=== PATIENT | female | born 1960 | race Caucasian/White ===

== ENCOUNTER 2024-01-15 09:38 | Inpatient (IN) | payer OTHER ==
[~2024-01-15] VITALS: Ht 160 cm; Wt 126.0 kg
[2024-01-15] VITALS (28 sets, daily range): BP systolic 108–139; BP diastolic 54–95
[2024-01-15 10:47] LABS: Hemoglobin 13.5 g/dL (11.5-16.0); Mean Corpuscular HGB 27.5 pg (26.0-34.0); Mean Corpuscular HGB Conc 33.8 g/dL (31.5-36.5); Mean Corpuscular Volume 82 fL (80-100); Mean Platelet Volume 11.6 fL (9.1-12.4); NRBC ABSOLUTE 0.02 K/mm3 (0.00-0.02); NRBC Auto 0.1 /100 WBC (0.0-0.2); Red Blood Cell Count 4.91 M/mm3 (3.80-5.20); White Blood Cell Count 18.34 K/mm3 (4.00-11.30)
[2024-01-15 11:06] LABS: Source, Urine Clean Catch
[2024-01-15 11:09] LABS: Albumin, Blood 1.5 g/dL (3.4-5.0); Albumin/Globulin Ratio 0.3 (0.8-1.8); Bilirubin, Total 1.6 mg/dL (0.1-1.0); Bun/Creatinine Ratio 15.4 (12.0-20.0); Calcium, Blood 8.8 mg/dL (8.5-10.1); Creatinine, Blood 2.79 mg/dL (0.40-1.00); Globulin, Blood 4.8 g/dL (2.2-4.0); Potassium, Blood 3.3 mmol/L (3.5-5.5); Total Protein, Blood 6.3 g/dL (6.4-8.2)
[2024-01-15 11:13] LABS: Platelet Count 50 K/mm3 (150-400)
[2024-01-15 11:22] LABS: BAND PERCENT MAN 3 % (0-8); BASOPHILS PERCENT MAN 0 % (0-2); EOSINOPHILS ABSOLUTE MAN 0.18 K/mm3 (0.00-0.68); EOSINOPHILS PERCENT MAN 1 % (0-6); LYMPHOCYTES ABSOLUTE MAN 0.55 K/mm3 (0.84-5.20); LYMPHOCYTES PERCENT MAN 3 % (21-46); MONOCYTES ABSOLUTE MAN 0.55 K/mm3 (0.16-1.47); MONOCYTES PERCENT MAN 3 % (4-13); NEUTROPHILS ABSOLUTE MAN 17.05 K/mm3 (1.96-9.15); SEG NEUTROPHILS PERCENT MAN 90 % (41-73); TOTAL CELLS COUNTED 100
[2024-01-15] MEDS ORDERED: Lactated Ringer's 1,000 ML IV ONE ×2 (11:25)
[2024-01-15] MEDS ORDERED: Ondansetron HCl 2 MG / ML 2ML Vial IV ONE (11:25)
[2024-01-15 11:26] LABS: Appearance, Urine Cloudy (Clear); Blood, Urine 5+ (Neg); Color, Urine Amber (P-Yellow); Glucose Qualitative, Urine 3+ (Neg); Ketones, Urine Neg (Neg); Leukocyte Esterase, Urine 3+ (Neg); Nitrite, Urine Neg (Neg); Protein, Urine 3+ (Neg); Urobilinogen, Urine 2+ (Normal)
[2024-01-15 11:35] LABS: Bilirubin, Urine 1+ (Neg)
[2024-01-15 11:37] LABS: Bacteria Many /hpf; Red Blood Cells, Urine TNTC /hpf (0-2); Squamous Epithelial Cells Mod /hpf (Few); White Blood Cells, Urine TNTC /hpf (0-5)
[2024-01-15 11:43] LABS: Beta-hydroxybutyrate 11.8 mg/dL (0.2-2.8); Magnesium, Blood 1.5 mg/dL (1.6-2.4)
[2024-01-15] MEDS ORDERED: CefTRIAXone Sodium 1,000 MG in NS 100 ML IV ONE (11:55)
[2024-01-15] MEDS ORDERED: Vancomycin HCL 2,000 MG in NS 520 ML IV ONE (12:40)
[2024-01-15] MEDS ORDERED: MetroNIDAZOLE 500MG/NS 100 ml 100 ML IV ONE (12:40)
[2024-01-15] MEDS ORDERED: Cefepime HCl 2,000 MG in NS 100 ML IV ONE (12:40)
[2024-01-15 13:02] LABS: Base Excess Venous -9.7 mmol/L; Bicarbonate Venous 17.6 mmol/L (24.0-30.0); PCO2 Venous 28.4 mmHg (38-42); pH Blood Venous 7.35 (7.34-7.37)
[2024-01-15] MEDS ORDERED: Lactated Ringer's 1,000 ML IV SCH ×2 (13:05→15:00)
[2024-01-15] MEDS ORDERED: Insulin Human Regular 100 UNIT in NS 100 ML IV SCH (13:20)
[2024-01-15] MEDS ORDERED: Meropenem 1,000 MG in NS 100 ML IV SCH (14:00)
--- NOTE | 2024-01-15 14:02 | NUR ---
1400 50MCG FENTANYL GIVEN BY ANESTHESIOLOGIST FOR CENTRAL LINE INCERTION 1407 CENTRAL LINE INRIGHT RADIAL WRIST. PT NIDIA WELL
[2024-01-15] MEDS ORDERED: D5W-NS 1,000 ML IV SCH ×2 (14:15→14:25)
--- NOTE | 2024-01-15 14:22 | NUR ---
1400 PT SATGS DROPPED AFTER FENTANYL TO MID 70'S O2 PLACED SATS RAISED QUICKLY
[2024-01-15] MEDS ORDERED: Bupivacaine 0.5% HCl 5 MG/ML 30MLVIAL ONE (15:00)
[2024-01-15] MEDS ORDERED: Ondansetron HCl 2 MG / ML 2ML Vial IV PRN (15:00)
[2024-01-15] MEDS ORDERED: FLU VACC TS2024-25(6MOS UP)/PF 45 MCG/0.5 ML SYRINGE IM ONE (15:00)
[2024-01-15] MEDS ORDERED: Ondansetron HCl 2 MG / ML 2ML Vial ONE (15:07)
[2024-01-15] MEDS ORDERED: Phenylephrine HCl 100 MCG/ML-NS 10MLSYR (1MG/10ML) ONE (15:07)
[2024-01-15] MEDS ORDERED: FentaNYL Citrate 50 MCG/ML 5 ML Injection ONE (15:07)
[2024-01-15] MEDS ORDERED: propofoL 20 ML IV ONE (15:07)
[2024-01-15] MEDS ORDERED: Rocuronium Bromide 10 MG/ML 5ML Injection IV ONE (15:07)
--- NOTE | 2024-01-15 15:14 | NUR ---
01/15/24 1514 Cary Fong PRIOR TO ARRIVING IN OR, PLACD A RIGHT RADIAL ARTERIAL LINE IN DAY SURGERY. PRIOR TO ARRIVING IN THE OR, VANCO 2GM IV WAS STARTED. DR. THOMPSON PLACED A RIGHT IJ CENTRAL LINE IN THE OPERATING ROOM AT 1435.
[2024-01-15] MEDS ORDERED: Sugammadex Sodium 200 MG/2ML SDV (100 MG/ML) ONE (15:27)
[2024-01-15] MEDS ORDERED: Mag Sulfate 1 GM/D5% 100ML 100 ML IV STA (15:42)
[2024-01-15] MEDS ORDERED: Cefepime HCl 2,000 MG in NS 100 ML IV SCH (16:10)
[2024-01-15] MEDS ORDERED: Cefepime HCl 1,000 MG in NS 100 ML IV SCH (16:14)
[2024-01-15 16:36] LABS: Hematocrit 28.9 % (33.0-51.0); Hemoglobin 9.8 g/dL (11.5-16.0); Mean Corpuscular HGB 28.1 pg (26.0-34.0); Mean Corpuscular HGB Conc 33.9 g/dL (31.5-36.5); Mean Corpuscular Volume 83 fL (80-100); Mean Platelet Volume 11.4 fL (9.1-12.4); RDW Coefficient Variation 14.2 % (11.7-14.2); RDW Standard Deviation 42.4 fL (35.1-46.3); Red Blood Cell Count 3.49 M/mm3 (3.80-5.20); White Blood Cell Count 19.55 K/mm3 (4.00-11.30)
[2024-01-15 16:42] LABS: Bun/Creatinine Ratio 16.3 (12.0-20.0); Calcium, Blood 7.4 mg/dL (8.5-10.1); Creatinine, Blood 2.57 mg/dL (0.40-1.00); Potassium, Blood 2.9 mmol/L (3.5-5.5)
[2024-01-15 16:49] LABS: Platelet Count 41 K/mm3 (150-400)
[2024-01-15] MEDS ORDERED: Potassium Chl 20MEQ/Water100ML 100 ML IV STA (16:52)
[2024-01-15 17:18] LABS: BAND PERCENT MAN 15 % (0-8); BASOPHILS PERCENT MAN 0 % (0-2); EOSINOPHILS PERCENT MAN 0 % (0-6); LYMPHOCYTES ABSOLUTE MAN 0.58 K/mm3 (0.84-5.20); LYMPHOCYTES PERCENT MAN 3 % (21-46); MONOCYTES ABSOLUTE MAN 0.97 K/mm3 (0.16-1.47); MONOCYTES PERCENT MAN 5 % (4-13); NEUTROPHILS ABSOLUTE MAN 17.98 K/mm3 (1.96-9.15); SEG NEUTROPHILS PERCENT MAN 77 % (41-73); TOTAL CELLS COUNTED 100
--- NOTE | 2024-01-15 18:25 | NUR ---
SHIFT SUMMARY: PT ARRIVED TO UNIT AT 1600 FROM SURGERY, SLID TO ICU BED VIA SLIDER SHEET. PT A/Ox4 AND ABLE TO MAKE NEEDS KNOWN. SBP 120s, MAP>65. MONITOR SHOWS SINUS RYTHM-SINUS TACH RATE 90s-100s. SPO2>95% ON 2L NC. INSULIN GTT AT 10 UNITS/HR ON ARRIVAL, NOW AT 25 UNITS/HR. PT HAS SMALL SKIN TEAR/ SHEAR ABOVE HER ANUS. MAHARAJ PATENT AND DRAINING TO GRAVITY. CALL LIGHT IN REACH. WILL REPORT TO ONCOMING RN.
[2024-01-15] MEDS ORDERED: FentaNYL Citrate 50 MCG/ML 2 ML Injection IV PRN (18:40)
[2024-01-15] MEDS ORDERED: Potassium Phosphate Dibasic 30 MM in Dextrose 5% 500 ML IV SCH (19:00)
[2024-01-15 19:54] LABS: International Normalized Ratio 1.22; Prothrombin Time Results 12.9 Sec (9.7-11.5)
[2024-01-15 20:51] LABS: Bilirubin, Direct 0.9 mg/dL (0.0-0.3); Bilirubin, Indirect 0.2 mg/dL (0.1-0.7); Bilirubin, Total 1.1 mg/dL (0.1-1.0); Percent Saturation 12.9 % (15.0-50.0)
[2024-01-15] MEDS ORDERED: Lactobacil 2-S.Thermo-Bifido 1 1 Cap PO SCH (21:00)
[2024-01-15] MEDS ORDERED: OxyCODONE HCL 5 MG TAB PO PRN (21:20)
[2024-01-15] MEDS ORDERED: HYDROmorphone HCl/Pf 1MG SYR IV PRN (21:20)
[2024-01-15 21:54] LABS: Bun/Creatinine Ratio 18.1 (12.0-20.0); Calcium, Blood 7.5 mg/dL (8.5-10.1); Creatinine, Blood 2.49 mg/dL (0.40-1.00); Potassium, Blood 3.3 mmol/L (3.5-5.5)
[2024-01-15 22:38] LABS: Hematocrit 28.5 % (33.0-51.0); Hemoglobin 9.7 g/dL (11.5-16.0); Mean Corpuscular HGB 27.8 pg (26.0-34.0); Mean Corpuscular Volume 82 fL (80-100); Mean Platelet Volume 10.3 fL (9.1-12.4); RDW Coefficient Variation 13.9 % (11.7-14.2); RDW Standard Deviation 41.2 fL (35.1-46.3); Red Blood Cell Count 3.49 M/mm3 (3.80-5.20); White Blood Cell Count 16.56 K/mm3 (4.00-11.30)
[2024-01-15 22:41] LABS: Platelet Count 38 K/mm3 (150-400)
[2024-01-15 23:04] LABS: BAND PERCENT MAN 10 % (0-8); BASOPHILS PERCENT MAN 0 % (0-2); EOSINOPHILS PERCENT MAN 0 % (0-6); LYMPHOCYTES % ATYPICAL MANUAL 1 % (0-0); LYMPHOCYTES ABSOLUTE MAN 0.99 K/mm3 (0.84-5.20); LYMPHOCYTES PERCENT MAN 5 % (21-46); MONOCYTES ABSOLUTE MAN 0.16 K/mm3 (0.16-1.47); MONOCYTES PERCENT MAN 1 % (4-13); SEG NEUTROPHILS PERCENT MAN 83 % (41-73); TOTAL CELLS COUNTED 100
[2024-01-16] VITALS (41 sets, daily range): BP systolic 88–125; BP diastolic 48–74
[2024-01-16] MEDS ORDERED: Clindamycin 900mg in D5W 50ML 50 ML IV SCH
[2024-01-16] MEDS ORDERED: D5W-1/2NS 1,000 ML IV SCH (00:05)
[2024-01-16 00:28] LABS: Bun/Creatinine Ratio 19.4 (12.0-20.0); Calcium, Blood 7.6 mg/dL (8.5-10.1); Creatinine, Blood 2.47 mg/dL (0.40-1.00); Potassium, Blood 3.4 mmol/L (3.5-5.5)
[2024-01-16 03:20] LABS: Hematocrit 26.2 % (33.0-51.0); Mean Corpuscular HGB Conc 34.4 g/dL (31.5-36.5); Mean Corpuscular Volume 82 fL (80-100); Mean Platelet Volume 11.2 fL (9.1-12.4); Red Blood Cell Count 3.21 M/mm3 (3.80-5.20)
[2024-01-16 03:27] LABS: Platelet Count 33 K/mm3 (150-400)
[2024-01-16 03:37] LABS: Albumin/Globulin Ratio 0.3 (0.8-1.8); Bun/Creatinine Ratio 19.6 (12.0-20.0); Calcium, Blood 7.1 mg/dL (8.5-10.1); Creatinine, Blood 2.45 mg/dL (0.40-1.00); Globulin, Blood 3.6 g/dL (2.2-4.0); Magnesium, Blood 1.7 mg/dL (1.6-2.4); Phosphorus, Blood 3.1 mg/dL (2.5-4.9); Potassium, Blood 3.4 mmol/L (3.5-5.5); Total Protein, Blood 4.6 g/dL (6.4-8.2)
[2024-01-16 04:04] LABS: BAND PERCENT MAN 9 % (0-8); BASOPHILS PERCENT MAN 0 % (0-2); EOSINOPHILS PERCENT MAN 0 % (0-6); LYMPHOCYTES ABSOLUTE MAN 1.25 K/mm3 (0.84-5.20); LYMPHOCYTES PERCENT MAN 8 % (21-46); METAMYELOCYTE ABSOLUTE MAN 0.15 K/mm3 (0.00-0.00); METAMYELOCYTE PERCENT MAN 1 % (0-0); MONOCYTES ABSOLUTE MAN 0.15 K/mm3 (0.16-1.47); MONOCYTES PERCENT MAN 1 % (4-13); NEUTROPHILS ABSOLUTE MAN 14.13 K/mm3 (1.96-9.15); SEG NEUTROPHILS PERCENT MAN 81 % (41-73); TOTAL CELLS COUNTED 100
[2024-01-16] MEDS ORDERED: Potassium Chloride 60 MEQ IV ONE (04:35)
[2024-01-16] MEDS ORDERED: Potassium Chl 20MEQ/Water100ML 100 ML IV SCH (05:05)
--- NOTE | 2024-01-16 06:13 | NUR ---
SHIFT SUMMARY: NO ACUTE CHANGES OVERNIGHT, VSS THROUGHOUT THE SHIFT. PAIN WAS DIFFICULT TO MANAGE FOR THE FIRST PART OF THE SHIFT; DR THOMPSON CAME BY TO BEDSIDE TO ASSESS PT AND ORDERED NEW PAIN MED REGIMINE; PAIN WELL MANAGED WITH PRN DILAUDID AND OXYCODONE. BREAKTHROUGH PAIN REPORTED 5/10; LOWER ABD/PELVIC REGION. DRESSING TO PERINEUM REMAINS C/D/I. LOW URINE OUTPUT THIS SHIFT; DR THOMPSON AWARE. PT REMAINS ON INSULIN GTT @ 6.9, CBG 140-160'S, D5 1/2 NS @ 200 MLS/HR; PT RECIEVING KCL REPLACEMENT THIS MORNING. PT'S , GABBI, AT BEDSIDE THROUGHOUT THE NIGHT. BED LOWERED, CALL LIGHT IN REACH.
[2024-01-16] MEDS ORDERED: Albumin (Human) 25gm/100ml 100 ML IV ONE (07:50)
[2024-01-16] MEDS ORDERED: Lactated Ringer's 1,000 ML IV SCH ×2 (08:00→16:50)
[2024-01-16 08:04] LABS: Creatinine, Blood 2.38 mg/dL (0.40-1.00); Potassium, Blood 3.7 mmol/L (3.5-5.5)
[2024-01-16 08:45] LABS: D-Dimer, Quantitative 18.58 mg/L FEU (0.00-0.52)
[2024-01-16] MEDS ORDERED: Azithromycin 500 MG in NS 250 ML IV SCH (09:00)
[2024-01-16] MEDS ORDERED: Lactated Ringer's 1,000 ML IV ONE (09:20)
[2024-01-16] MEDS ORDERED: Pantoprazole Sodium 40 MG Injection IV ONE (09:20)
[2024-01-16 12:06] LABS: Bun/Creatinine Ratio 22.5 (12.0-20.0); Calcium, Blood 7.1 mg/dL (8.5-10.1); Creatinine, Blood 2.22 mg/dL (0.40-1.00); Potassium, Blood 3.9 mmol/L (3.5-5.5)
[2024-01-16] MEDS ORDERED: Insulin Glargine-Yfgn 100 Unit/mL 3 ML SYR SC SCH (13:00)
[2024-01-16] MEDS ORDERED: Cefepime HCl 2,000 MG in NS 100 ML IV SCH (16:00)
[2024-01-16] MEDS ORDERED: Insulin Human Lispro 100 Units/ML 3ML Syringe SC SCH (16:30)
[2024-01-16 17:25] LABS: Bun/Creatinine Ratio 23.4 (12.0-20.0); Calcium, Blood 7.4 mg/dL (8.5-10.1); Creatinine, Blood 2.22 mg/dL (0.40-1.00)
--- NOTE | 2024-01-16 17:54 | NUR ---
SHIFT SUMMARY: AT THE START OF SHIFT PT WAS VERY DROWSY AND SOMNOLENT. HER MENTATION AND WAKEFULNESS HAS IMPROVED THROUGHOUT THE DAY. SHE HAS BEEN ABLE TO EAT SMALL AMOUNTS WITHOUT NAUSEA AND IS OFF THE INSULIN GTT. PTS PAIN HAS BEEN MANAGABLE. HER INCISION IS CLEAN WITHOUT REDNESS OR BRUISING. DRESSING WAS CHANGED TODAY PER DR. THOMPSON. SHE HAS NO COMPLAINT OF DYSPNEA BUT IS TACHYPNEIC WITH EXERTION, HER SPO2 HAS BEEN >95% ON 2LPM NC. PT HAS BEEN IN A SINUS RHYTHM IN THE 90'S AND NORMOTENSIVE. MAHARAJ CATHETER IS PATENT AND DRAINING TO GRAVITY WITH MINIMAL URINE OUTPUT. DR GUZMAN AND KWABENA ARE AWARE AND WE ARE ATTEMPTING TO CORRECT WITH HYDRATION.
[2024-01-16 22:16] LABS: Bun/Creatinine Ratio 25.6 (12.0-20.0); Calcium, Blood 7.1 mg/dL (8.5-10.1); Creatinine, Blood 2.23 mg/dL (0.40-1.00); Potassium, Blood 4.3 mmol/L (3.5-5.5)
[2024-01-17] VITALS (16 sets, daily range): BP systolic 103–164; BP diastolic 52–109
[2024-01-17 05:30] LABS: Hemoglobin 8.2 g/dL (11.5-16.0); Mean Corpuscular HGB 27.8 pg (26.0-34.0); Mean Corpuscular HGB Conc 34.2 g/dL (31.5-36.5); Mean Corpuscular Volume 81 fL (80-100); Mean Platelet Volume 11.4 fL (9.1-12.4); RDW Coefficient Variation 14.4 % (11.7-14.2); RDW Standard Deviation 42.6 fL (35.1-46.3); Red Blood Cell Count 2.95 M/mm3 (3.80-5.20); White Blood Cell Count 10.46 K/mm3 (4.00-11.30)
[2024-01-17 05:46] LABS: Platelet Count 24 K/mm3 (150-400)
[2024-01-17 05:50] LABS: BAND PERCENT MAN 5 % (0-8); BASOPHILS PERCENT MAN 0 % (0-2); EOSINOPHILS PERCENT MAN 0 % (0-6); LYMPHOCYTES ABSOLUTE MAN 0.73 K/mm3 (0.84-5.20); LYMPHOCYTES PERCENT MAN 7 % (21-46); METAMYELOCYTE PERCENT MAN 1 % (0-0); MONOCYTES ABSOLUTE MAN 0.62 K/mm3 (0.16-1.47); MONOCYTES PERCENT MAN 6 % (4-13); NEUTROPHILS ABSOLUTE MAN 8.99 K/mm3 (1.96-9.15); SEG NEUTROPHILS PERCENT MAN 81 % (41-73); TOTAL CELLS COUNTED 100
[2024-01-17] MEDS ORDERED: Protein Supplement 30 ML UD PO SCH (08:30)
[2024-01-17 10:21] LABS: Bun/Creatinine Ratio 29.9 (12.0-20.0); Calcium, Blood 7.8 mg/dL (8.5-10.1); Creatinine, Blood 2.11 mg/dL (0.40-1.00); Potassium, Blood 4.2 mmol/L (3.5-5.5)
[2024-01-17] MEDS ORDERED: Thiamine HCl 300 MG in NS 100 ML IV ONE (13:40)
[2024-01-17] MEDS ORDERED: NS 1,000 ML IV SCH (14:00)
[2024-01-17] MEDS ORDERED: Folic Acid 1 MG TAB PO ONE (15:15)
[2024-01-17 17:13] LABS: Bun/Creatinine Ratio 30.7 (12.0-20.0); Calcium, Blood 7.9 mg/dL (8.5-10.1); Creatinine, Blood 2.05 mg/dL (0.40-1.00); Potassium, Blood 4.1 mmol/L (3.5-5.5)
[2024-01-17] MEDS ORDERED: Insulin Human Lispro 100 Units/ML 3ML Syringe SC SCH (17:30)
[2024-01-17] MEDS ORDERED: NS 500 ML IV SCH (18:00)
--- NOTE | 2024-01-17 18:26 | NUR ---
SHIFT SUMMARY: PT MENTATION CONTINUES TO IMPROVE TODAY. SHE IS MORE MOTIVATED TO EAT AND DO THINGS HERSELF. SHE IS STILL VERY FATIGUED BY MINOR ACTIVITY. PTS URINE OUTPUT AND QUALITY HAS IMPROVED. SHE IS DRINKING ENSURES THROUGHOUT THE DAY PER DIETARY. HER BLOOD SUGARS ARE UP AND ANION GAP HAS OPENED AGAIN. DR YUAN IS AWARE. PATIENT SAT IN THE RECLINER FOR A WHILE TODAY. HER CENTRAL LINE WAS REMOVED. MAHARAJ CATHETER IS STILL IN PLACE TODAY. HAS BEEN AT BEDSIDE THROUGHOUT THE DAY.
[2024-01-17 18:28] LABS: Uric Acid, Blood 8.8 mg/dL (2.6-6.0)
[2024-01-17 18:30] LABS: Thyroid Stimulating Hormone 0.287 uIU/mL (0.360-4.800)
[2024-01-17 20:45] LABS: Bun/Creatinine Ratio 31.6 (12.0-20.0); Calcium, Blood 7.8 mg/dL (8.5-10.1); Creatinine, Blood 2.06 mg/dL (0.40-1.00); Potassium, Blood 4.1 mmol/L (3.5-5.5)
[2024-01-17] MEDS ORDERED: Insulin Human Regular 100 UNIT in NS 100 ML IV SCH (21:05)
[2024-01-17] MEDS ORDERED: Lactated Ringer's 1,000 ML IV SCH ×2 (21:05→21:30)
[2024-01-17] MEDS ORDERED: NS 250 ML IV PRN (21:35)
[2024-01-17] MEDS ORDERED: NS 0 ML IV ONE (21:41)
--- NOTE | 2024-01-17 21:54 | NUR ---
THIS RN ASSUMED CARE OF PT AT 1900. PT IS ALERT AND ORIENTED BUT EXTREMELY TIRED, FOLLOWING COMMANDS. PT SOUNDS COURSE/DIMINSHED, ON 3L OF NC SATTING >90%, PT DENIES SHORTNESS OF BREATH. PT HEART RATE IS IN THE 80s, BLOOD PRESSURE STABLE AT 130/80s, PT DENIES CHEST PAIN. PT DOES HAVE AN INCISION IN THE CLAUDIA AREA, CLEAN, DRY AND INTACT WITH SUTURES. PT LAYING IN BED WATCHING TV WITH SIGNIFICANT OTHER. NO OTHER INTERVENTIONS AT THIST TIME. PLAN OF CARE CONTINUED.
--- NOTE | 2024-01-17 21:56 | NUR ---
THIS RN CALLED , PT SUGAR WAS 372 FINGERSTICK WITH SCHEDULED AT 2200, PT CLINCIALLY LOOKED NOT WELL, AND THIS RN DID NOT WANT TO DELAY CARE WITH THE ANION GAP 17 AND CO2 16. SAID TO GET 2200 LABS NOW AND CALL BACK.
--- NOTE | 2024-01-17 21:58 | NUR ---
PT CHEMISTRY CAME BACK WITH AN ANION GAP OF 15, CO2 17 AND BLOOD SUGAR 373, WAS CALLED AND SAID TO RESTART PT ON INSULIN DRIP, HAVE LR RUNNING AT 200ML/HR. PT BLOOD SUGARS WILL BE RECHECKED EVERY HOUR AFTER INSULIN DRIP HAS BEEN STARTED. NO FURTHER INTERVENTIONS AT THIS TIME. PLAN OF CARE CONTINUED.
[2024-01-18] VITALS (36 sets, daily range): BP systolic 100–168; BP diastolic 51–125
[2024-01-18] MEDS ORDERED: D5W-1/2NS 1,000 ML IV SCH (02:05)
[2024-01-18] MEDS ORDERED: HydrALAZINE HCl 20 MG / ML 1ML Vial IV PRN (02:10)
--- NOTE | 2024-01-18 02:25 | NUR ---
PT BLOOD SUGAR IS 234, INSULIN DRIP WAS TITRATED DOWN TO 3UNITS/HR, NOTIFIED, SAID TO START D51/2NS AT 125ML/HR 1 LITER, THEN ALSO ADDED HYDRALAZINE PRN FOR SBP >160.
[2024-01-18 03:26] LABS: Hematocrit 23.9 % (33.0-51.0); Hemoglobin 8.3 g/dL (11.5-16.0); Mean Corpuscular HGB 28.5 pg (26.0-34.0); Mean Corpuscular HGB Conc 34.7 g/dL (31.5-36.5); Mean Corpuscular Volume 82 fL (80-100); Mean Platelet Volume 12.1 fL (9.1-12.4); RDW Coefficient Variation 14.4 % (11.7-14.2); RDW Standard Deviation 42.8 fL (35.1-46.3); Red Blood Cell Count 2.91 M/mm3 (3.80-5.20); White Blood Cell Count 12.32 K/mm3 (4.00-11.30)
[2024-01-18 03:32] LABS: Platelet Count 28 K/mm3 (150-400)
[2024-01-18 03:44] LABS: Bun/Creatinine Ratio 36.6 (12.0-20.0); Creatinine, Blood 1.83 mg/dL (0.40-1.00); Magnesium, Blood 1.5 mg/dL (1.6-2.4); Phosphorus, Blood 4.6 mg/dL (2.5-4.9); Potassium, Blood 3.9 mmol/L (3.5-5.5)
[2024-01-18 03:47] LABS: BAND PERCENT MAN 3 % (0-8); BASOPHILS PERCENT MAN 0 % (0-2); EOSINOPHILS PERCENT MAN 0 % (0-6); LYMPHOCYTES ABSOLUTE MAN 1.23 K/mm3 (0.84-5.20); LYMPHOCYTES PERCENT MAN 10 % (21-46); MONOCYTES ABSOLUTE MAN 0.24 K/mm3 (0.16-1.47); MONOCYTES PERCENT MAN 2 % (4-13); NEUTROPHILS ABSOLUTE MAN 10.84 K/mm3 (1.96-9.15); SEG NEUTROPHILS PERCENT MAN 85 % (41-73); TOTAL CELLS COUNTED 100
--- NOTE | 2024-01-18 05:06 | NUR ---
PT SUMMARY PT IS LAYING IN BED WATCHING TV, STILL FOLLOWS COMMANDS APPROPRIATLEY. INSULIN DRIP IS STILL RUNNING AT 2UNITS/HR, LAST SUGAR WAS 194, CO2 17 THIS AM AND ANION GAP WAS LOWER AT 14 THIS AM. NO OTHER INTERVENTIONS AT THIS TIME. PLAN OF CARE CONTINUED.
[2024-01-18] MEDS ORDERED: Potassium Chl 20MEQ/Water100ML 100 ML IV SCH (06:30)
[2024-01-18] MEDS ORDERED: Mag Sulfate 1 GM/D5% 100ML 100 ML IV STA (06:34)
[2024-01-18 06:37] LABS: Free Thyroxine 1.08 ng/dL (0.70-1.60); Triiodothyronine, Free 0.77 pg/mL (2.18-3.98)
[2024-01-18] MEDS ORDERED: CefTRIAXone Sodium 2,000 MG in NS 100 ML IV SCH (06:39)
[2024-01-18] MEDS ORDERED: Vancomycin HCL 2,500 MG in NS 500 ML IV ONE (07:35)
[2024-01-18] MEDS ORDERED: Insulin Human Lispro 100 Units/ML 3ML Syringe SC SCH ×3 (08:30→17:30)
[2024-01-18] MEDS ORDERED: Acetaminophen 325 MG TABLET PO PRN (08:45)
[2024-01-18] MEDS ORDERED: Insulin Glargine-Yfgn 100 Unit/mL 3 ML SYR SC SCH ×2 (09:00→21:00)
[2024-01-18] MEDS ORDERED: Multivitamins-Minerals Liquid 15 ML Oral Syringe PO SCH (09:00)
[2024-01-18] MEDS ORDERED: Thiamine HCl 100 MG Tab PO SCH (09:00)
[2024-01-18 10:33] LABS: Creatinine, Blood 1.62 mg/dL (0.40-1.00); Potassium, Blood 4.2 mmol/L (3.5-5.5)
[2024-01-18] MEDS ORDERED: Furosemide 10 MG/ML 4ML Vial IV ONE ×2 (13:00→18:00)
[2024-01-18 15:47] LABS: Bun/Creatinine Ratio 44.4 (12.0-20.0); Calcium, Blood 8.2 mg/dL (8.5-10.1); Creatinine, Blood 1.51 mg/dL (0.40-1.00); Potassium, Blood 4.1 mmol/L (3.5-5.5)
--- NOTE | 2024-01-18 16:16 | NUR ---
AFTER WOUND CARE AND BED BATH THE PATIENT BECAME TREMULOUS AND WAS SHIVERING UNCONTROLLABLY. SHE WAS AFEBRILE. SHE BECAME TACHYCARDIC AND TACHYPNEIC WITH ST ELEVATION ALARMING ON THE MONITOR. SHE ALSO EXHIBITED EXPIRATORY WHEEZES. HER SPO2 DROPPED ON ROOM AIR. SHE WAS PLACED ON AN OXY MASK AT 8LPM AND AN ECG WAS DONE. DR GUAMAN, DR. YUAN AND DR GUZMAN TENDED TO THE PATIENT. THE EPISODE OF TACHYPNEA AND LABORIOUS BREATHING PERSISTED FOR ABOUT AN HOUR. PT REMAINED TACHYCARDIC AT 110 VS 134.
[2024-01-18] MEDS ORDERED: Dronabinol 2.5 MG Cap PO SCH (16:30)
--- NOTE | 2024-01-18 18:44 | NUR ---
SHIFT SUMMARY: PT HAS BEEN AWAKE, ALERT AND ORIENTED TODAY. SHE IS COOPERATIVE AND WILLING TO PARTICIPATE IN TREATMENT AND EATING HER NUTRITION HAS BEEN A MAIN CONCERN. SHE REMAINS VERY WEAK AND FATIGUED THOUGH. HER TWO INCISIONS FROM SURGERY ARE HEALING WELL, BUT LEAKING SOME SHE IS VERY EDAMATOUS. HER MAIN SOURCE OF PAIN IF HER LOWER ABDOMEN/PELVIS. PT WAS ON AN INSULIN GTT THROUGH MOST OF THE SHIFT AND IS NOW OFF AGAIN. SHE IS TACHYCARDIC, NORMOTENSIVE AND TACHYPNEIC ON 2 LPM NC HER SPO2 REMAINS >92%. SHE IS MORE WHEEZY THAN SHE HAS BEEN PREVIOUSLY.
--- NOTE | 2024-01-18 20:44 | NUR ---
THIS RN ASSUMED CARE OF PT AT 1900. PT IS ALERT AND ORIENTED X4, FOLLOWING COMMANDS AND WATCHING TELEVISION WITH SIGNIFICANT OTHER. PT SOUNDS A LITTLE WHEEZY/DIMINISHED, ON 2L NC SATTING >92%, PT DENIES SHORTNESS OF BREATH. PT HEART RATE IS NORMAL SINUS TO SINUS TACH, PT DENIES CHEST PAIN AND BLOOD PRESSURE 110/70s. PT DOES HAVE A MAHARAJ CATHETER IN PLACE DRAINING TO GRAVITY. PT ALSO HAS SUTURES AND SURGICAL WOUNDS IN CLAUDIA AREA THAT ARE CLEAN, DRY AND INTACT. NO OTHER INTERVENTIONS AT THIS TIME. PLAN OF CARE CONTINUED.
[2024-01-19] VITALS (19 sets, daily range): BP systolic 102–162; BP diastolic 57–118
[2024-01-19] MEDS ORDERED: Vancomycin HCL 1,000 MG in NS 250 ML IV SCH (01:00)
[2024-01-19 02:55] LABS: Hemoglobin 7.5 g/dL (11.5-16.0); Mean Corpuscular HGB Conc 34.1 g/dL (31.5-36.5); Mean Corpuscular Volume 82 fL (80-100); Mean Platelet Volume 11.6 fL (9.1-12.4); RDW Coefficient Variation 14.4 % (11.7-14.2); RDW Standard Deviation 42.8 fL (35.1-46.3); Red Blood Cell Count 2.68 M/mm3 (3.80-5.20); White Blood Cell Count 14.65 K/mm3 (4.00-11.30)
[2024-01-19 02:58] LABS: Platelet Count 40 K/mm3 (150-400)
[2024-01-19 03:10] LABS: Bun/Creatinine Ratio 52.2 (12.0-20.0); Calcium, Blood 8.2 mg/dL (8.5-10.1); Creatinine, Blood 1.34 mg/dL (0.40-1.00); Magnesium, Blood 1.7 mg/dL (1.6-2.4); Phosphorus, Blood 5.4 mg/dL (2.5-4.9); Potassium, Blood 3.8 mmol/L (3.5-5.5)
[2024-01-19 04:14] LABS: BAND PERCENT MAN 13 % (0-8); BASOPHILS PERCENT MAN 0 % (0-2); EOSINOPHILS PERCENT MAN 0 % (0-6); LYMPHOCYTES ABSOLUTE MAN 0.58 K/mm3 (0.84-5.20); LYMPHOCYTES PERCENT MAN 4 % (21-46); MONOCYTES ABSOLUTE MAN 0.58 K/mm3 (0.16-1.47); MONOCYTES PERCENT MAN 4 % (4-13); NEUTROPHILS ABSOLUTE MAN 13.47 K/mm3 (1.96-9.15); SEG NEUTROPHILS PERCENT MAN 79 % (41-73); TOTAL CELLS COUNTED 100
--- NOTE | 2024-01-19 06:01 | NUR ---
PT SUMMARY PT IS RESTING IN BED WATCHING TELEVISION. PT DID HAVE A BOWEL MOVEMENT OVERNIGHT, URINE OUTPUT IS STILL 100 ML/HR, NO OTHER NEW EVENTS TO REPORT OVERNIGHT. PLAN OF CARE CONTINUED.
[2024-01-19] MEDS ORDERED: Potassium Chloride 20 MEQ/15 ML UDC PO ONE (07:00)
[2024-01-19] MEDS ORDERED: Folic Acid 1 MG TAB PO SCH (09:00)
[2024-01-19] MEDS ORDERED: Furosemide 10 MG / ML 2ML Vial IV SCH (09:00)
--- NOTE | 2024-01-19 09:05 | NUR ---
Salix of care: Patient resting in bed with no complaints of pain. Alert & oriented & moves all extremities weakly. PT at the beside & so patient repositioned to the chair utilizing the lift. She is having large incontinent liquid stools so rectal tube placed in order to maintain integrity of surgical sites. Noland catheter draining clear, yellow urine. Pubis incision cleansed & new dressing placed. Labia incision with serosanguinous drainage. Vital signs are stable on 4L NC.
[2024-01-19] MEDS ORDERED: Insulin Human Lispro 100 Units/ML 3ML Syringe SC SCH (11:30)
[2024-01-19 13:43] LABS: Hematocrit 22.1 % (33.0-51.0); Hemoglobin 7.4 g/dL (11.5-16.0)
--- NOTE | 2024-01-19 18:12 | NUR ---
SHIFT SUMMARY PT REMAINS ALERT AND ORIENTED, THOUGH SLOW TO RESPOND. BP STABLE. HR REMAINS NSR. O2 SATS HAVE REMAINED ABOVE 90% 2L NC. MAHARAJ PATENT AND DRAINING CLEAR YELLOW URINE. RECTAL TUBE IN PLACE. PT TOLERATING PO INTAKE. PUBIS INCISION WITH DRESSING CLEAN, DRY, AND INTACT. LABIA INCISION CLEANED MULTIPLE TIMES THIS SHIFT DUE TO SEROSANGUINOUS DRAINAGE. PT COMPLAINED OF PAIN WITH CLEANSING OF WOUND, BUT REPORTS PAIN IS TOLERABLE. PT UP TO RECLINER WITH LIFT THIS SHIFT AND REPOSITIONED Q2H. WILL REPORT OFF TO ONOCMING RN
[2024-01-20] VITALS (7 sets, daily range): BP systolic 120–174; BP diastolic 55–86
[2024-01-20 05:24] LABS: BASOPHILS ABSOLUTE AUTO 0.06 K/mm3 (0.00-0.23); BASOPHILS PERCENT AUTO 0 % (0-2); Hematocrit 21.6 % (33.0-51.0); Hemoglobin 7.3 g/dL (11.5-16.0); LYMPHOCYTES ABSOLUTE AUTO 1.16 K/mm3 (0.84-5.20); LYMPHOCYTES PERCENT AUTO 7 % (21-46); MONOCYTES ABSOLUTE AUTO 0.74 K/mm3 (0.16-1.47); MONOCYTES PERCENT AUTO 5 % (4-13); Mean Corpuscular HGB 27.8 pg (26.0-34.0); Mean Corpuscular HGB Conc 33.8 g/dL (31.5-36.5); Mean Corpuscular Volume 82 fL (80-100); Mean Platelet Volume 11.7 fL (9.1-12.4); Platelet Count 93 K/mm3 (150-400); RDW Coefficient Variation 14.3 % (11.7-14.2); RDW Standard Deviation 42.5 fL (35.1-46.3); Red Blood Cell Count 2.63 M/mm3 (3.80-5.20)
[2024-01-20 05:59] LABS: Alanine Aminotransfer (ALT/SGP 12 U/L (12-78); Albumin, Blood 1.2 g/dL (3.4-5.0); Albumin/Globulin Ratio 0.3 (0.8-1.8); Alk Phos 245 U/L (50-136); Anion Gap 13 mmol/L (3-11); Aspartate Aminotrans (AST/SGOT 12 U/L (12-37); Bilirubin, Total 0.5 mg/dL (0.1-1.0); Blood Urea Nitrogen 69 mg/dL (8-24); Bun/Creatinine Ratio 92.1 (12.0-20.0); CO2, Blood 21 mmol/L (21-32); Calcium, Blood 8.6 mg/dL (8.5-10.1); Chloride, Blood 102 mmol/L (98-108); Cholesterol 120 mg/dL (50-200); Creatinine, Blood 0.75 mg/dL (0.40-1.00); Globulin, Blood 4.2 g/dL (2.2-4.0); Glomerular Filtration Rate 91 (60-); Glucose, Blood 248 mg/dL (70-99); HDL Cholesterol 4 mg/dL (>39); LDL/HDL RATIO 18.3; Low Density Lipoprotein Chol 73 mg/dL (0-110); Magnesium, Blood 1.6 mg/dL (1.6-2.4); Phosphorus, Blood 4.5 mg/dL (2.5-4.9); Potassium, Blood 3.8 mmol/L (3.5-5.5); Sodium, Blood 132 mmol/L (136-145); Total Protein, Blood 5.4 g/dL (6.4-8.2); Triglycerides 215 mg/dL (30-160); Very Low Density Lipoprot Chol 43 mg/dL (6-32)
[2024-01-20 06:02] LABS: EOSINOPHILS ABSOLUTE AUTO 0.12 K/mm3 (0.00-0.68); EOSINOPHILS PERCENT AUTO 1 % (0-6); IMMATURE GRAN ABSOLUTE AUTO 0.69 K/mm3 (0.00-0.10); IMMATURE GRAN PERCENT AUTO 4 % (0-1); NEUTROPHILS ABSOLUTE AUTO 13.33 K/mm3 (1.96-9.15); NEUTROPHILS PERCENT AUTO 83 % (41-73)
[2024-01-20 07:55] LABS: IMMATURE RETIC FRACTION 19.7 % (2.3-16.0); RETIC HGB EQUIVALENT 30.9 pg (28.20-36.60); RETICULOCYTE ABSOLUTE 0.0103 M/mm3 (0.0200-0.1100); RETICULOCYTE COUNT PERCENT 0.39 % (0.50-2.50)
[2024-01-20] MEDS ORDERED: Banana Flakes/Tos 1 EA Powder Pack PO SCH (10:00)
[2024-01-20 12:19] LABS: Hematocrit 22.1 % (33.0-51.0); Hemoglobin 7.5 g/dL (11.5-16.0)
[2024-01-20] MEDS ORDERED: Insulin Human Lispro 100 Units/ML 3ML Syringe SC SCH (12:30)
[2024-01-20] MEDS ORDERED: HydrALAZINE HCl 20 MG / ML 1ML Vial IV PRN (15:25)
[2024-01-20] MEDS ORDERED: Enoxaparin 40 MG/0.4 ML SYR SC SCH (16:00)
--- NOTE | 2024-01-20 16:00 | NUR ---
UPDATE WOUND TO PUBIS AREA CLEANED AND REDRESSED. WOUND TO LABIA WITH SEROSANGUINOUS DRAINAGE CLEANED AND LEFT OPEN TO AIR. PT PROVIDED BED BATH AND LINEN CHANGE. PT PAINFUL DURING BATH AND MEDICATED PER EMAR.
--- NOTE | 2024-01-20 19:20 | NUR ---
SHIFT SUMMARY PT REMAINS ALERT AND ORIENTED. BP STABLE. HR REMAINS NSR. O2 SATS HAVE REMAINED ON 2L NC. PT COMPLAINED OF PAIN WITH REPOSITIONING THIS SHIFT AND MEDICATED PER EMAR. MAHARAJ PATENT AND DRAINING CLEAR YELLOW URINE. RECTAL TUBE REMAINS IN PLACE, BUT PT STARTED ON BANANATROL PER EMAR. PT REPOSITIONED Q2H. REPORT GIVEN TO STAFFING COORDINATOR RN TO ASSUME CARE
[2024-01-20] MEDS ORDERED: Insulin Glargine-Yfgn 100 Unit/mL 3 ML SYR SC SCH (21:00)
[2024-01-21] VITALS (15 sets, daily range): BP systolic 121–182; BP diastolic 53–85
[2024-01-21 04:18] LABS: BASOPHILS ABSOLUTE AUTO 0.06 K/mm3 (0.00-0.23); BASOPHILS PERCENT AUTO 0 % (0-2); EOSINOPHILS PERCENT AUTO 1 % (0-6); Hematocrit 21.4 % (33.0-51.0); Hemoglobin 7.3 g/dL (11.5-16.0); IMMATURE GRAN ABSOLUTE AUTO 0.84 K/mm3 (0.00-0.10); IMMATURE GRAN PERCENT AUTO 5 % (0-1); LYMPHOCYTES ABSOLUTE AUTO 1.12 K/mm3 (0.84-5.20); LYMPHOCYTES PERCENT AUTO 7 % (21-46); MONOCYTES ABSOLUTE AUTO 0.68 K/mm3 (0.16-1.47); MONOCYTES PERCENT AUTO 4 % (4-13); Mean Corpuscular HGB Conc 34.1 g/dL (31.5-36.5); Mean Corpuscular Volume 82 fL (80-100); Mean Platelet Volume 11.9 fL (9.1-12.4); NEUTROPHILS ABSOLUTE AUTO 13.33 K/mm3 (1.96-9.15); NEUTROPHILS PERCENT AUTO 83 % (41-73); Platelet Count 174 K/mm3 (150-400); RDW Coefficient Variation 14.3 % (11.7-14.2); RDW Standard Deviation 42.2 fL (35.1-46.3); Red Blood Cell Count 2.61 M/mm3 (3.80-5.20); White Blood Cell Count 16.13 K/mm3 (4.00-11.30)
[2024-01-21 04:50] LABS: Bun/Creatinine Ratio 72.5 (12.0-20.0); Calcium, Blood 8.6 mg/dL (8.5-10.1); Creatinine, Blood 0.76 mg/dL (0.40-1.00); Potassium, Blood 3.6 mmol/L (3.5-5.5)
--- NOTE | 2024-01-21 05:22 | NUR ---
PT REMAINS A&OX4. VSS ON 2L NC >92%. PT REMAINS ON TELE NSR IN 80s. PTs MAHARAJ ALONG WITH RECTAL TUBE REMAIN IN PLACE FOR CLEANLINESS OF INCISIONS. PTS INCISION ON LABIA REMAINS INTACT AND HEALING WELL, REMAINS OPEN TO AIR. PTS WOUND TO LOWER ABDOMEN CLEANED AND REDRESSED. PT C/O PAIN WITH MOVEMENT. PRN MEDS GIVEN WITH GOOD EFFECT. PT GIVEN EGG CRATE FOAM TO PREVENT ANY PRESSURE INJURIES ALONG WITH Q2 TURNS. NO FURTHER QUESTIONS OR CONCERNS AT THIS TIME. CALL LR WITHIN REACH.
--- NOTE | 2024-01-21 17:22 | NUR ---
SHIFT SUMMARY; ASSUMED CARE AT 0700. A/A/OX3. Q2 TURNS DURING SHIFT, EGG CRATE ON BED. LIFT TO CHAIR TODAY, SAT IN CHAIR FOR A COUPLE HOURS. MOVES ARMS WELL BUT LEGS REMAIN TO WEAK TO LEFT INDEPENDANTLY. DIET ADVANCED TO REGULAR DIET TODAY BY ST, SWALLOWING PILL WHOLE WITH WATER WITHOUT DIFFICULTY. 1 UNIT PRBC COMPLETED TODAY, TOLERATED WELL. PAIN MANAGED TODAY TO ACCEPTABLE LEVEL WITH MEDS PER EMAR. BED BATH COMPLETED TODAY WITH LINEN CHANGE. ABD DRESSING C/D/I. INTERMITANT OOZE/BLEEDING FROM LABIA SITE, DRIED AND CLEANED PRN. MAHARAJ INPLACE DRAINING CLEAR YELLOW URINE. RECTAL TUBE IN PLACE DRAINING BROWN LIQUID STOOL. VSS, NO ACUTE MEDICAL CHANGES, WILL CONTINUE TO MONITOR AND TREAT UNTIL CHANGE OF SHIFT.
[2024-01-21 19:33] LABS: Hemoglobin 8.5 g/dL (11.5-16.0)
--- NOTE | 2024-01-22 02:05 | NUR ---
01/21/24 2159 PT ARRIVED FROM PCU TO ROOM IN STABLE CONDITION. AGREE WITH PREVIOUS NURSES ASSESSMENT EXCEPT, PT REPORTS PAIN IN ABD, HIPS, AND GROIN. GAVE PAIN MEDS, WILL EVAL FOR EFFECT. LAST BLOOD SUGAR WAS 200. TELE POTATO SPOTTER REPORTED THAT DURING TRANSPORT THE PATIENT HAD A [address] BUT IS NOW BACK TO SR AT 96. PT DENIED FEELING ANY SIGNS OF SYMPTOMS DURING TRANSPORT OR AT THIS TIME. PER TELE POTATO SPOTTER THIS IS A NEW EVENT. WILL LET THE DR KNOW SOON ABLE. MAHARAJ AND RECTAL TUBE ARE IN PLACE. CLEAR YELLOW URINE. STOOL IS MEDIUM TO DARK BROWN, SOFT, SMALL AMOUNT IN TUBE AND BAG. NO OTHER APPARENT SIGNS OF DISTRESS. IS IN ROOM. CALL LIGHT IS IN REACH.
--- NOTE | 2024-01-22 02:14 | NUR ---
0000 PT LYING IN BED, EYES CLOSED, APPEARS TO BE RESTING. BREATHING IS EVEN, UNLABORED. NO APPARENT SIGNS OF DISTRESS. CALL LIGHT IS IN REACH. IS IN ROOM.
[2024-01-22 03:29] VITALS: BP 159/58
--- NOTE | 2024-01-22 04:46 | NUR ---
PT REQUESTED AND RECEIVED PAIN MEDS, WILL EVAL FOR EFFECT. NO OTHER APPARENT SIGNS OF DISTRESS. CALL LIGHT IS IN REACH. IS IN ROOM.
--- NOTE | 2024-01-22 04:46 | NUR ---
PT IS AAO X 4, ON 2L AT 93%. REPORTS PAIN IN ABD, GROIN, AND HIPS. GOT DILAUDED AND XIN X 2. INCISION POST I&D ON PANNUS, REDNESS ON BOTTOM, WOUND TO LABIA. RECTAL TUBE W/MED TO DARK BROWN SOFT STOOL. MAHARAJ WITH CLEAR YELLOW URINE. BS WAS 200. TELE SR IN 80'S. 1 EPISODE OF 7 BEAT RUN OF SVT REPORTED BY TELE PROGRAM MANAGER ENVIRONMENTAL PLANNING DURING TRANSPORT FROM PCU TO MED FLOOR, ASYMPTOMATIC.
[2024-01-22 04:53] LABS: BASOPHILS ABSOLUTE AUTO 0.09 K/mm3 (0.00-0.23); BASOPHILS PERCENT AUTO 1 % (0-2); EOSINOPHILS PERCENT AUTO 1 % (0-6); Hematocrit 25.2 % (33.0-51.0); Hemoglobin 8.4 g/dL (11.5-16.0); IMMATURE GRAN ABSOLUTE AUTO 0.87 K/mm3 (0.00-0.10); IMMATURE GRAN PERCENT AUTO 6 % (0-1); LYMPHOCYTES ABSOLUTE AUTO 1.05 K/mm3 (0.84-5.20); LYMPHOCYTES PERCENT AUTO 7 % (21-46); MONOCYTES ABSOLUTE AUTO 0.73 K/mm3 (0.16-1.47); MONOCYTES PERCENT AUTO 5 % (4-13); Mean Corpuscular HGB 28.1 pg (26.0-34.0); Mean Corpuscular HGB Conc 33.3 g/dL (31.5-36.5); Mean Corpuscular Volume 84 fL (80-100); Mean Platelet Volume 10.6 fL (9.1-12.4); NEUTROPHILS ABSOLUTE AUTO 12.14 K/mm3 (1.96-9.15); NEUTROPHILS PERCENT AUTO 81 % (41-73); Platelet Count 236 K/mm3 (150-400); RDW Coefficient Variation 14.4 % (11.7-14.2); RDW Standard Deviation 43.6 fL (35.1-46.3); Red Blood Cell Count 2.99 M/mm3 (3.80-5.20); White Blood Cell Count 14.98 K/mm3 (4.00-11.30)
[2024-01-22 05:13] LABS: Bun/Creatinine Ratio 68.7 (12.0-20.0); Calcium, Blood 8.6 mg/dL (8.5-10.1); Creatinine, Blood 0.66 mg/dL (0.40-1.00); Potassium, Blood 3.7 mmol/L (3.5-5.5)
--- NOTE | 2024-01-22 06:30 | NUR ---
PT LYING IN BED, AWAKE, USING A HEATING PAD TO ASSIST WITH PAIN RELIEF. NO OTHER APPARENT SIGNS OF DISTRESS. CALL LIGHT IS IN REACH. IS IN ROOM. NO OTHER CHANGES THIS SHIFT.
[2024-01-22 07:19] VITALS: BP 147/66
[2024-01-22] MEDS ORDERED: Insulin Human Lispro 100 Units/ML 3ML Syringe SC SCH ×2 (07:30→12:30)
[2024-01-22 15:23] VITALS: BP 152/62
[2024-01-22 18:26] LABS: TRIIODOTHYRONINE, REVERSE TMS 72.1 ng/dL (9.0-27.0)
--- NOTE | 2024-01-22 18:31 | NUR ---
SHIFT SUMMARY PT A&OX4, VSS, ON 2L O2 NC, BEDRIDDEN AT THIS TIME, TOLERATING PO, VOIDING, AND PAIN MANAGED PER EMAR. RECTAL TUBE BECAME DISLODGED AND WAS REMOVED AT 1030. PT HAS PRESSURE ULCER ON MD BERNADETTE NOTIFIED, AND WOUND CARE/DRESSING ORDER RECEIVED. R INNER THIGH BLISTER NOW OPEN, COVERED W/ MEPILEX. NO OTHER ACUTE CHANGES. CALL LIGHT WITHIN REACH AND PT ABLE TO MAKE NEEDS KNOWN.
[2024-01-22 19:35] VITALS: BP 164/73
[2024-01-22] MEDS ORDERED: Insulin Glargine-Yfgn 100 Unit/mL 3 ML SYR SC SCH (21:00)
[2024-01-22] MEDS ORDERED: Miconazole Nitrate 2% 85 GM PWD TOP SCH (21:00)
[2024-01-23 02:58] VITALS: BP 178/68
--- NOTE | 2024-01-23 05:23 | NUR ---
SHIFT SUMMARY PT A&OX4. VERY PAINFUL WHEN TURNING. MEDICATED FOR PAIN PER EMAR. MAHARAJ CATH IN PLACE AND NEEDED TO BE FLUSHED ONCE DURING THE NIGHT. PT CONTINUES TO HAVE LIQUID STOOL. FOAM DRESSING ON COCCYX AND EXUDRY DRESSING ON ABD CHANGED ONCE. REMAINS ON 2L OF OXYGEN. NO EVENTS ON TELE. BP ELEVATED BUT DID NOT MEET CRITERIA FOR HYDALAZINE PRN. AT BEDSIDE. BED IN LOWEST POSITION AND CALL LIGHT IN REACH.
[2024-01-23 07:03] LABS: BASOPHILS ABSOLUTE AUTO 0.09 K/mm3 (0.00-0.23); BASOPHILS PERCENT AUTO 1 % (0-2); EOSINOPHILS ABSOLUTE AUTO 0.06 K/mm3 (0.00-0.68); EOSINOPHILS PERCENT AUTO 0 % (0-6); Hematocrit 25.2 % (33.0-51.0); Hemoglobin 8.2 g/dL (11.5-16.0); IMMATURE GRAN ABSOLUTE AUTO 0.37 K/mm3 (0.00-0.10); IMMATURE GRAN PERCENT AUTO 3 % (0-1); LYMPHOCYTES ABSOLUTE AUTO 1.04 K/mm3 (0.84-5.20); LYMPHOCYTES PERCENT AUTO 7 % (21-46); MONOCYTES ABSOLUTE AUTO 0.62 K/mm3 (0.16-1.47); MONOCYTES PERCENT AUTO 4 % (4-13); Mean Corpuscular HGB 28.1 pg (26.0-34.0); Mean Corpuscular HGB Conc 32.5 g/dL (31.5-36.5); Mean Corpuscular Volume 86 fL (80-100); Mean Platelet Volume 10.4 fL (9.1-12.4); NEUTROPHILS ABSOLUTE AUTO 11.92 K/mm3 (1.96-9.15); NEUTROPHILS PERCENT AUTO 85 % (41-73); Platelet Count 283 K/mm3 (150-400); RDW Coefficient Variation 14.7 % (11.7-14.2); RDW Standard Deviation 44.3 fL (35.1-46.3); Red Blood Cell Count 2.92 M/mm3 (3.80-5.20)
[2024-01-23 07:19] LABS: Albumin, Blood 1.4 g/dL (3.4-5.0); Albumin/Globulin Ratio 0.3 (0.8-1.8); Bilirubin, Total 0.3 mg/dL (0.1-1.0); Bun/Creatinine Ratio 79.5 (12.0-20.0); Calcium, Blood 9.3 mg/dL (8.5-10.1); Creatinine, Blood 0.52 mg/dL (0.40-1.00); Globulin, Blood 4.4 g/dL (2.2-4.0); Potassium, Blood 3.8 mmol/L (3.5-5.5); Total Protein, Blood 5.8 g/dL (6.4-8.2)
[2024-01-23 08:14] VITALS: BP 130/57
[2024-01-23] MEDS ORDERED: Furosemide 40 MG Tab PO SCH (09:00)
--- NOTE | 2024-01-23 10:56 | NUR ---
DR YUAN CONTACTED REGARDING BLOOD NOTED ON VAGINAL AREA. HOSPITALIST TO COME TO BEDSIDE TO SEE PATIENT.
[2024-01-23] MEDS ORDERED: Fluconazole 100 MG Tab PO ONE (16:00)
[2024-01-23 17:04] VITALS: BP 177/65
[2024-01-23] MEDS ORDERED: Insulin Human Lispro 100 Units/ML 3ML Syringe SC SCH (17:30)
--- NOTE | 2024-01-23 17:40 | NUR ---
PATIENT A/O X 4. PATIENT HAS BEEN PAINFUL IN BED AND WILL HELP WITH MOVING WHILE IN BED. PATIENT HAD NOTED VAISHALI BLOOD NOTED IN VAGINAL AREA, UPON INSPECTION IT WAS NOTED PATIENT THAT PATIENT HAD NOTED AREA OF CUT IN VAGINAL FOLD AND NOTED LESIONS ON VAGINAL AREA. PATIENT MAHARAJ WAS DISCONTINUED AND PROVIDER DR SWANSON AWARE AND STATED CURRENLY ON ANTIBIOTIC. VIRAL CULTURE WAS SENT TO LAB AND PENDING RESULTS. PATIENT NEW DIABETIC AND MET WITH NUTRITION. PATEINT ADVISED TO CONTACT NURSE FOR ANY ISSUES.
[2024-01-23] MEDS ORDERED: Ampicillin Sod/Sulbactam Sod 3 GM in NS 100 ML IV SCH (18:00)
[2024-01-23 19:45] VITALS: BP 140/69
[2024-01-23] MEDS ORDERED: Arginine/Glutamine/Calcium Hmb 1 Packet PO SCH (21:00)
[2024-01-24 04:57] VITALS: BP 138/51
[2024-01-24 05:18] LABS: BASOPHILS ABSOLUTE AUTO 0.11 K/mm3 (0.00-0.23); BASOPHILS PERCENT AUTO 1 % (0-2); EOSINOPHILS ABSOLUTE AUTO 0.17 K/mm3 (0.00-0.68); EOSINOPHILS PERCENT AUTO 1 % (0-6); Hematocrit 25.1 % (33.0-51.0); Hemoglobin 8.5 g/dL (11.5-16.0); IMMATURE GRAN ABSOLUTE AUTO 0.32 K/mm3 (0.00-0.10); IMMATURE GRAN PERCENT AUTO 2 % (0-1); LYMPHOCYTES ABSOLUTE AUTO 1.17 K/mm3 (0.84-5.20); LYMPHOCYTES PERCENT AUTO 8 % (21-46); MONOCYTES ABSOLUTE AUTO 0.64 K/mm3 (0.16-1.47); MONOCYTES PERCENT AUTO 4 % (4-13); Mean Corpuscular HGB 28.4 pg (26.0-34.0); Mean Corpuscular HGB Conc 33.9 g/dL (31.5-36.5); Mean Corpuscular Volume 84 fL (80-100); NEUTROPHILS ABSOLUTE AUTO 12.68 K/mm3 (1.96-9.15); NEUTROPHILS PERCENT AUTO 84 % (41-73); RDW Coefficient Variation 14.9 % (11.7-14.2); RDW Standard Deviation 44.1 fL (35.1-46.3); Red Blood Cell Count 2.99 M/mm3 (3.80-5.20); White Blood Cell Count 15.09 K/mm3 (4.00-11.30)
[2024-01-24 05:33] LABS: Mean Platelet Volume 10.5 fL (9.1-12.4); Platelet Count 274 K/mm3 (150-400)
[2024-01-24 05:38] LABS: Bun/Creatinine Ratio 69.9 (12.0-20.0); Calcium, Blood 9.2 mg/dL (8.5-10.1); Creatinine, Blood 0.56 mg/dL (0.40-1.00)
--- NOTE | 2024-01-24 06:14 | NUR ---
SHIFT SUMMARY A&0X4. PT ADMITTED DUE TO NECROTIZING FASCITIS. PT IN CONTACT ISO DUE TO ROLL OUT OF C-DIFF. WASN'T ABLE TO GET STOOL SAMPLE DUE TO PT NOT HAVING BM THIS SHIFT. PT REPORTS HIP/LOW ABD PAIN, PAIN MANAGED PER EMAR AND WITH KPAD. PT ON BEDREST, TURNED Q2 HRS. PT ON 1L OF O2 VIA N/C, SATS ARE 97%. NOTICED SCANT BLEEDING ON PERIPAD. WOUND DRESSINGS CHANGED DURING SHIFT. BARRIER CREAM APPLIED TO CLAUDIA AREA POST BEING CLEANED AND DRY, ANTIFUNGAL POWDER APPLIED UNDER PANNUS AND INNER THIGH. MEPILEX WAS REPLACED ON COCCYX. ON R THIGH, CLEANED SKIN TEAR WITH WOUND SPRAY AND 4X4 GAUZE, PAT AREA DRY . APPLIED XEROFORM AND MEPILEX DRESSING ON TOP. ON INCISION ON LOWER ABD, USED 4X4 GAUZE AND WOUND SPRAY TO CLEAN AREA, AND APPLIED EXUDRY AND TAPE TO SECURE DRESSING. BED AT LOWEST POSITION, PT CALLS APPROPRIATELY, CALL LIGHT IN REACH.
[2024-01-24 07:23] VITALS: BP 136/62
[2024-01-24 11:09] LABS: Adenovirus F 40/41 Not Detected (NOT DETECT); Astrovirus Not Detected (NOT DETECT); Campylobacter Sp Not Detected (NOT DETECT); Cryptosporidium Not Detected (NOT DETECT); Cyclospora Cayetanensis Not Detected (NOT DETECT); E. Coli O157 Not Detected (NOT DETECT); Entamoeba Histolytica Not Detected (NOT DETECT); Enteroaggregative E. coli-EAEC Not Detected (NOT DETECT); Enteropathogenic E. coli-EPEC Not Detected (NOT DETECT); Enterotoxigenic E. coli-ETEC Not Detected (NOT DETECT); Giardia Lamblia Not Detected (NOT DETECT); Plesiomonas Shigelloides Not Detected (NOT DETECT); Salmonella Sp Not Detected (NOT DETECT); Shiga Toxin-prod E. coli-STEC Not Detected (NOT DETECT); Shigella/Enteroin E. coli-EIEC Not Detected (NOT DETECT); Vibrio Cholerae Not Detected (NOT DETECT); Vibrio Sp Not Detected (NOT DETECT); Yersinia Enterocolitica Not Detected (NOT DETECT)
[2024-01-24 11:10] LABS: Norovirus GI/GII Not Detected (NOT DETECT); Rotavirus A Not Detected (NOT DETECT); Sapovirus Not Detected (NOT DETECT)
[2024-01-24 15:26] VITALS: BP 155/62
[2024-01-24] MEDS ORDERED: Insulin Human Lispro 100 Units/ML 3ML Syringe SC SCH (17:30)
--- NOTE | 2024-01-24 19:25 | NUR ---
ROZ IS AN ICU TRANSFER HERE FOR UTI/DKA/SEPSIS/TISSUE INFECTION. SHE IS A 2 PERSON TURN IN BED, BECOMES SOB AND ANXIOUS WITH BED MOBILITY DUE TO GENERALIZED PAIN. SHE IS VERY DECONDITIONED AFTER A 9 DAY HOSPITAL STAY. WORKED WITH PT/OT TODAY. CARE COORDINATION MET WITH FAMILY, OBI, AGREES TO TRANSFER TO [facility] FOR SKILLED REHAB. PT HAS AN INCISION ON HER LOWER ABD/PELVIS THAT IS COVERED WITH EXUDRY AND MEPILEX. CHANGED DAILY AND FOR PRN SOILING. INCONTINENT OF URINE AND STOOL, IN DEPENDS. PANEL TODAY SHOWED NEGATIVE FOR CDIFF. PT HAS SMALL AMOUNT OF VAGINAL BLEEDING FROM THE INCISION TO HER INNER RIGHT LABIA. PT'S PRIORITY TODAY WAS PAIN, PRNS GIVEN INCLUDED OXYCODONE EVERY 4 HOURS. PT ON TELE - DID HAVE A 6 SECOND RUN OF SVT - PT DENIED CHEST PAIN. BEDREST DUE TO DECONDITIONING. RN GAVE REPORT TO NIGHT NURSE. ROOM AIR. A&O X4.
--- NOTE | 2024-01-24 19:31 | NUR ---
TELE CALLED TO INFORM NURSE THAT PT HAD A 6 SECOND RUN OF SVT. RN ASSESSED PT WHO HAD NO ASSOCIATED SYMPTOMS, DENIED CHEST PAIN OR SHORTNESS OF BREATH. PT WAS LYING IN BED, WATCHING TV WITH HER .
[2024-01-24 19:33] VITALS: BP 161/66
--- NOTE | 2024-01-25 01:07 | NUR ---
NOTE AT 1915 GOT A CALL FROM TELE THAT PT HAD A 9 BEAT RUN OF SVT. PT REPORTED NO SYMPTOMS, REPORTED NO CHEST DISCOMFORT OR SOB. NOTIFIED KIM. NO NEW ORDERS AT 2014. AT 0100 TELE CALLED AND NOTIFIED PT HAVING A 18 BEAT RUN OF SVT. PT REPORTED NO SYMPTOMS, REPORTED NO CHEST DISCOMFORT OR SOB, AT BEDSIDE REPORTED "SHE WAS JUST SLEEPING SOUNDLY." PT CALL LIGHT IN REACH,
--- NOTE | 2024-01-25 02:54 | NUR ---
NOTE ON 01-24-24 AT 2330 WOUND DRESSINGS WERE CHANGED. NOTICED SCANT BLEEDING ON PERIPAD. PT WAS INC. OF URINE AND BM. DID A BED CHANGE AND PROVIDED CLAUDIA CARE. APPLIED ANTIFUNGAL POWDER UNDER PANNUS AND INNER THIGH, MEPILEX WAS REPLACED ON COCCYX. ON R THIGH CLEANED SKIN TEAR WITH WOUND SPRAY AND 4X4 GAUZE, PAT AREA DRY. APPLIED XEROFORM AND MEPILEX DRESSING ON TOP. ON INCISION ON LOWER ABD, USED 4X4 GAUZE AND WOUND SPRAY TO HOANG AREA, AND APPLIED EXUDRY AND TAPE TO SECURE DRESSING. BED IN LOWEST POSITION. APPLIED NEW GOWN, FLOATED PT TO R SIDE. CALL LIGHT IN REACH
[2024-01-25 04:04] VITALS: BP 125/57
[2024-01-25 04:57] LABS: BASOPHILS ABSOLUTE AUTO 0.11 K/mm3 (0.00-0.23); BASOPHILS PERCENT AUTO 1 % (0-2); EOSINOPHILS ABSOLUTE AUTO 0.18 K/mm3 (0.00-0.68); EOSINOPHILS PERCENT AUTO 1 % (0-6); Hematocrit 25.9 % (33.0-51.0); Hemoglobin 8.5 g/dL (11.5-16.0); IMMATURE GRAN ABSOLUTE AUTO 0.18 K/mm3 (0.00-0.10); IMMATURE GRAN PERCENT AUTO 1 % (0-1); LYMPHOCYTES PERCENT AUTO 10 % (21-46); MONOCYTES ABSOLUTE AUTO 0.48 K/mm3 (0.16-1.47); MONOCYTES PERCENT AUTO 4 % (4-13); Mean Corpuscular HGB 28.7 pg (26.0-34.0); Mean Corpuscular HGB Conc 32.8 g/dL (31.5-36.5); Mean Corpuscular Volume 88 fL (80-100); Mean Platelet Volume 9.5 fL (9.1-12.4); NEUTROPHILS ABSOLUTE AUTO 10.38 K/mm3 (1.96-9.15); NEUTROPHILS PERCENT AUTO 83 % (41-73); Platelet Count 416 K/mm3 (150-400); RDW Coefficient Variation 14.9 % (11.7-14.2); Red Blood Cell Count 2.96 M/mm3 (3.80-5.20); White Blood Cell Count 12.53 K/mm3 (4.00-11.30)
[2024-01-25 05:37] LABS: Bun/Creatinine Ratio 73.8 (12.0-20.0); Calcium, Blood 9.7 mg/dL (8.5-10.1); Creatinine, Blood 0.54 mg/dL (0.40-1.00); Potassium, Blood 3.9 mmol/L (3.5-5.5)
--- NOTE | 2024-01-25 06:20 | NUR ---
SHIFT SUMMARY PT A&OX4. ADMITTED DUE TO NECROTIZING FASCITIS. PT REPORTS HIP/LOW ABD PAIN, PAIN MANAGED PER EMAR WITH KPAD. PT ON BEDREST, TURNED Q2 HOURS. PT INC OF URINE AND BM, PT CHANGED PRN. PT CURRENTLY HAS BLE FLOATED ON PILLOWS. PT ON 1L O2 VIA N/C, SATS ARE 98%. WOUND DRESSING CHANGED PER SHIFT (LOOK AT PREVIOUS NOTE). PT ON TELE, TELE REPORTED RUNS OF SVT TWICE DURING SHIFT (SEE PREVIOUS NOTE). BED IN LOWEST POSIBLE POSITION, PT CALLS APPROPRIATELY, CALL LIGHT IN REACH. PLAN FOR PT TO BE DISCHARGED TO [facility] FOR REHAB. ANTIBIOTICS WERE STOPPED AT MIDNIGHT PER ORDER.
[2024-01-25 07:44] VITALS: BP 142/67
--- NOTE | 2024-01-25 15:47 | NUR ---
SHIFT SUMMARY PATIENT IN BED THIS SHIFT, USING BEDPAN. ATTEMPTED EDGE OF BED FOR MEALS, NOT ABLE TO CONTROL TRUNK AT THIS TIME, NOT ABLE TO MOVE LEGS OFF BED WITHOUT MAX ASSISTANCE. ENCOURAGED TO PERFORM PT EXERCISES. A/O X4. TELE DC THIS SHIFT. NEW WOUND CARE ORDERS, SURGEON PERFORMED FIRST DRESSING. RECEIVING OXY FOR PAIN RELIEF. REDNESS AND SWELLING CONTINUE TO LEFT ARM, TRAVELING TO SHOULDER AND CHEST. DOCS MADE AWARE AND ASSESSED. ABLE TO MAKE NEEDS KNOWN. CALL LIGHT IN REACH, CARES ONGOING.
[2024-01-25 16:14] VITALS: BP 167/67
[2024-01-25] MEDS ORDERED: Insulin Human Lispro 100 Units/ML 3ML Syringe SC SCH (17:30)
[2024-01-25 19:34] VITALS: BP 144/67
[2024-01-26 04:59] LABS: BASOPHILS ABSOLUTE AUTO 0.11 K/mm3 (0.00-0.23); BASOPHILS PERCENT AUTO 1 % (0-2); EOSINOPHILS ABSOLUTE AUTO 0.14 K/mm3 (0.00-0.68); EOSINOPHILS PERCENT AUTO 1 % (0-6); Hemoglobin 8.1 g/dL (11.5-16.0); IMMATURE GRAN ABSOLUTE AUTO 0.14 K/mm3 (0.00-0.10); IMMATURE GRAN PERCENT AUTO 1 % (0-1); LYMPHOCYTES ABSOLUTE AUTO 1.12 K/mm3 (0.84-5.20); LYMPHOCYTES PERCENT AUTO 9 % (21-46); MONOCYTES ABSOLUTE AUTO 0.54 K/mm3 (0.16-1.47); MONOCYTES PERCENT AUTO 5 % (4-13); Mean Corpuscular HGB 28.1 pg (26.0-34.0); Mean Corpuscular HGB Conc 32.4 g/dL (31.5-36.5); Mean Corpuscular Volume 87 fL (80-100); Mean Platelet Volume 9.4 fL (9.1-12.4); NEUTROPHILS ABSOLUTE AUTO 9.86 K/mm3 (1.96-9.15); NEUTROPHILS PERCENT AUTO 83 % (41-73); Platelet Count 449 K/mm3 (150-400); RDW Coefficient Variation 14.6 % (11.7-14.2); RDW Standard Deviation 45.8 fL (35.1-46.3); Red Blood Cell Count 2.88 M/mm3 (3.80-5.20); White Blood Cell Count 11.91 K/mm3 (4.00-11.30)
[2024-01-26 05:22] VITALS: BP 165/68
[2024-01-26 05:35] LABS: Albumin, Blood 1.5 g/dL (3.4-5.0); Albumin/Globulin Ratio 0.3 (0.8-1.8); Bilirubin, Total 0.3 mg/dL (0.1-1.0); Bun/Creatinine Ratio 83.5 (12.0-20.0); Calcium, Blood 9.9 mg/dL (8.5-10.1); Creatinine, Blood 0.5 mg/dL (0.40-1.00); Globulin, Blood 4.6 g/dL (2.2-4.0); Total Protein, Blood 6.1 g/dL (6.4-8.2)
--- NOTE | 2024-01-26 06:15 | NUR ---
PLANT NURSERY WORKER SUMMARY: PT A&O X4. PT ABLE TO MAKE NEEDS KNOWN. MEDICATED PER ORDERS IN EMAR FOR ABD / HIP PAIN X2 THIS SHIFT; EFFECTIVE. WOUND CARE PROVIDED ORDERED; TOLERATED WELL. PT INCONTINENT OF URINE. ENCOURAGED / EDUCATED PT TO ALERT STAFF OF TOILETING NEEDS. [facility] NO ACUTE CHANGES THIS SHIFT. CARES ONGOING.
[2024-01-26 07:29] VITALS: BP 144/51
[2024-01-26] MEDS ORDERED: Ketorolac Tromethamine 15mg Vial IV ONE (10:00)
[2024-01-26 15:21] VITALS: BP 149/68
[2024-01-26] MEDS ORDERED: Fluconazole 100 MG Tab PO ONE (16:00)
--- NOTE | 2024-01-26 17:30 | NUR ---
SHIFT SUMMARY PATIENT IN BED THIS SHIFT. EATING WELL. C/O HIP PAIN WITH MOVEMENT, DOC ORDERED ONE TIME TOREDOL WHICH PROVIDED MODERATE RELIEF. DR JOHNSON PERFORMED WOUND DRESSING CHANGE THIS AM. ACCEPTING OF REPOSITIONING FOR PRESSURE OFFLOADING. ABLE TO MAKE NEEDS KNOWN. CALL LIGHT IN REACH. CARES ONGOING.
[2024-01-26 19:29] VITALS: BP 152/65
[2024-01-26] MEDS ORDERED: Insulin Glargine-Yfgn 100 Unit/mL 3 ML SYR SC SCH (21:00)
--- NOTE | 2024-01-27 03:30 | NUR ---
INTERNAL CARVER SUMMARY: PT A&O X4. MAKES NEEDS KNOWN AND USES CALL LIGHT APPROPRIATELY. SUPRAPUBIC DRESSING CHANGED ORDERED X1 THIS SHIFT FOR SOILAGE. PT TOLERATED PROCEDURE WELL. PT HAS HAD DECREASED PAIN THIS SHIFT. MEDICATED X1 WITH PRN OXYCODONE PER EMAR ORDER; EFFECTIVE. PT HAS NOTED INCREASED INDEPENDENCE WITH TURING IN BED FOR CARE. PT HAD BEEN TOTAL 2 PERSON ASSIST WITH TURINGING HAD HAS BEEN EXTENSIVE 2 PERSON ASSIST T/O SHIFT. NOTED INCRESED TOLERANCE WITH LAYING ON HER SIDE FOR CLAUDIA CARE. PLAN IS FOR PT TO D/C TO SNF PENDING INSURANCE AUTH. NO ACUTE CHANGES THIS SHIFT. CARES ONGOING ORDERED. CALL LIGHT IN REACH.
[2024-01-27 04:29] VITALS: BP 157/55
[2024-01-27 06:07] LABS: Albumin, Blood 1.6 g/dL (3.4-5.0); Albumin/Globulin Ratio 0.3 (0.8-1.8); Bilirubin, Total 0.3 mg/dL (0.1-1.0); Bun/Creatinine Ratio 85.9 (12.0-20.0); Calcium, Blood 9.5 mg/dL (8.5-10.1); Creatinine, Blood 0.49 mg/dL (0.40-1.00); Globulin, Blood 4.8 g/dL (2.2-4.0); Potassium, Blood 4.2 mmol/L (3.5-5.5); Total Protein, Blood 6.4 g/dL (6.4-8.2)
[2024-01-27 07:11] VITALS: BP 171/70
[2024-01-27 07:21] LABS: Hematocrit 25.7 % (33.0-51.0); Hemoglobin 8.3 g/dL (11.5-16.0)
--- NOTE | 2024-01-27 10:15 | NUR ---
CONTACTED DR SWANSON TO DISCUSS PATIENT ABD WOUND WHICH IS NOTED TO BE RED AND DEEP. WOUND MEASURES 7CM IN LENGTH WITH OPEN AREA 4CM, DEPT 1.4CM WITH NOTED UNDERMINING AND TUNNELING. PER DR SWANSON REQUEST TO CALL DR MOLINA SURGERY TO DISCUSS WOUND. CALL PLACED TO DR MOLINA FOR CALL BACK
--- NOTE | 2024-01-27 11:13 | NUR ---
DR MOLINA RETURN THIS CALL AND REQUESTED THIS NURSE CONTACT DR JOHNSON, OFFICE CALLED FOR DR JOHNSON HOWEVER DR JOHNSON NOT WORKING. [facility]ODR[facility]GUEZ OFFICE RECALLED AND ADVISED THAT DR JOHNSON NOT AVIALABLE. REQUESTED CALL BACK FROM SURGEON DR MOLINA FOR WOUND CARE ORDERS.
[2024-01-27 15:13] VITALS: BP 165/67
--- NOTE | 2024-01-27 17:32 | NUR ---
PATIENT A/O X 4. PATIENT HAS BEEN ACCEPTED TO [facility] HOWEVER IS PENDING INSURANCE AUTH. PATIENT HAS A WOUND ON HER LOWER ABD MEASURING 7 CM IN LENGTH HOWEVER 5 CM NOTED TO BE OPEN WITH DEPT OF 1.5CM WITH NOTED TUNNELING AND UNDERMINDING. INCREASED SEROSANGIOUNS DRAINAGE NOTED THOUGHT THE DAY. DR MOLINA CONTACTED HOWEVER DID NOT COME TO BEDSIDE. PENDING SURGEON TO SEE PATINT AT BEDSIDE. PATIENT WOUND ON RIGHT UPPER THIGH NOTED 4 X 4 X 2 CM WITH NO DEPT. WOUND WAS CLEANSED AND XEROFORM APPLIED AND COVERED WITH MEPILEX. PATIENT ADVISED TO LET THIS NURSE KNOW IF THERE ARE ANY NEEDS. PATIENT VERBALIZED UNDERSTANDING
[2024-01-27 19:24] VITALS: BP 147/60
[2024-01-27 20:44] LABS: HSV 1 SUBTYPE BY PCR Not Detected; HSV 2 SUBTYPE BY PCR Not Detected; HSV SUBTYPE SOURCE Serum
[2024-01-28 01:30] VITALS: BP 149/63
[2024-01-28 05:04] LABS: Hematocrit 25.2 % (33.0-51.0)
[2024-01-28 05:37] LABS: Albumin, Blood 1.5 g/dL (3.4-5.0); Albumin/Globulin Ratio 0.3 (0.8-1.8); Bilirubin, Total 0.4 mg/dL (0.1-1.0); Bun/Creatinine Ratio 65.9 (12.0-20.0); Calcium, Blood 9.6 mg/dL (8.5-10.1); Creatinine, Blood 0.55 mg/dL (0.40-1.00); Globulin, Blood 4.8 g/dL (2.2-4.0); Potassium, Blood 4.1 mmol/L (3.5-5.5); Total Protein, Blood 6.3 g/dL (6.4-8.2)
--- NOTE | 2024-01-28 06:18 | NUR ---
SHIFT SUMMARY: Pt is admitted for septic shock and is a full code. Is alert and able to make needs known. ADLs have been a mix of 1-2 depending on activity and how she was feeling. Pain has been managed with positioning but has been offered PRN medications and declined. She has stated after being positioned that the pain goes down to a 2-3/10 and that is manageable. Dressing to lower ABD was changed early in the shift due to soiling and has been CDI the rest of the shift.
[2024-01-28 07:04] VITALS: BP 161/64
[2024-01-28 14:48] VITALS: BP 163/67
--- NOTE | 2024-01-28 18:36 | NUR ---
SHIFT SUMMARY PT A&0X4. PT ADMITTED TO NECROTIZING FASCITIS. PT REPORTED IN PT REPOSITIONED Q2 HOURS. PT REPORTS INCREASE IN PAIN AT R HIP. PT MEDICATED PER EMAR. DR. VELAZQUEZ NOTIFIED OF INCREASED PAIN. PT RECEIVED ULTRASOUND. OF R HIP DURING SHIFT. PT UP TO RECLINER FOR A FEW HOURS THIS SHIFT. PT BED IN LOWEST POSITION AND CALL LIGHT IN REACH. PT CALLS APPROPRIATELY. PT WOUND DRESSING CHANGED DURING SHIFT PRN. VSS. PT ON ROOM AIR.
[2024-01-28 19:21] VITALS: BP 163/63
[2024-01-29 04:04] VITALS: BP 147/61
[2024-01-29 07:15] VITALS: BP 149/67
[2024-01-29 12:12] LABS: CORONAVIRUS COVID-19 AG Negative (NEGATIVE)
[2024-01-29] MEDS ORDERED: Insulin Human Lispro 100 Units/ML 3ML Syringe SC SCH ×2 (12:30→16:30)
[2024-01-29] MEDS ORDERED: BANATROL PLUS1 EAC1 PO (12:43)
[2024-01-29] MEDS ORDERED: JUVEN PACKET1 EAC3 PO (12:43)
[2024-01-29] MEDS ORDERED: Acetaminophen650 M1 PO (12:43)
[2024-01-29] MEDS ORDERED: FOLI1 PO (12:46)
[2024-01-29] MEDS ORDERED: DRON2.5 PO (12:46)
[2024-01-29] MEDS ORDERED: FURO40 PO (12:48)
[2024-01-29] MEDS ORDERED: LANTUS SOL100 UNIT/1 SC (12:52)
[2024-01-29] MEDS ORDERED: HUMALOG KW100 UNIT/1 SC (12:53)
--- NOTE | 2024-01-29 12:54 | NUR ---
NOTE PT BLOOD SUGAR WAS 83. PT RECEIVES INSULIN SCHEDULED WITH MEALS. NOTIFIED DR. HIGGINS. ORDERED TO HOLD INSULIN AT LUNCH TIME.
[2024-01-29] MEDS ORDERED: INSULIN LI100 UNIT/6 SC (12:55)
[2024-01-29] MEDS ORDERED: MICONAZOLE 2% TOP (12:57)
[2024-01-29] MEDS ORDERED: OXAYDO5 M2 PO (12:59)
[2024-01-29] MEDS ORDERED: MULTIVITAM12 MG/15 M PO (12:59)
[2024-01-29] MEDS ORDERED: LIQUICAL PLUS480 ML PO (13:00)
[2024-01-29] MEDS ORDERED: B-1100 M2 PO (13:00)
--- NOTE | 2024-01-29 14:33 | NUR ---
REPORT GIVEN TO YOLETTE SALAZAR RN AT [facility]. PT BELONGINGS PACKED UP. PT TO GO TO [facility] VIA GURNEY TRANSPORT WHEN THEY ARRIVE. PAIN MEDICATION FOR R HIP PAIN GIVEN SO SHE CAN TOLERATE TRANSFER.
--- NOTE | 2024-01-29 16:14 | NUR ---
DISCHARGE NOTE PT A&OX4. PT ADMITTED DUE TO NECROTIZING FASCITIS. PT REPORTS R HIP PAIN, PAIN MANAGED PER EMAR. WOUND DRESSING CHANGED. PT WENT WITH WOUND SUPPLIES. PT REPOSITIONED Q2 HOURS. PT INC/CONT OF STOOL AND URINE, PT CHANGED NEEDED. PT EDUCATED ON DISCHARGE AND MEDS. PT GOT ESCORTED BY [facility] TO [facility]. ALETA RUSSO GAVE REPORT TO [facility].
== END 2024-01-29 16:01 | DRG 853 ==
LOC: ER 09:38 → MEDS 13:18 → ICUE 13:18 → PCU 01-19 12:52 → MEDS 01-21 21:26 → ENPENDDIS 01-29 11:36 → MEDS 01-29 16:01
PROVIDERS: Emergency Medicine; Family Medicine; Hospitalist; Physician Assistant; Student in an Organized Health Care Education/Training Program; Surgery; ADMIT Internal Medicine
PROC: 02HV33Z Insertion of Infusion Device into Superior Vena Cava, Percutaneous Approach (ICD-10-PCS; 2024-01-15)
PROC: 3E03329 Introduction of Other Anti-infective into Peripheral Vein, Percutaneous Approach (ICD-10-PCS; 2024-01-15)
PROC: 0WJN0ZZ Inspection of Female Perineum, Open Approach (ICD-10-PCS; principal; 2024-01-15 13:00)
PROC: 30233N1 Transfusion of Nonautologous Red Blood Cells into Peripheral Vein, Percutaneous Approach (ICD-10-PCS; 2024-01-21)
DX: A41.9 Sepsis, unspecified organism (principal); E11.10 Type 2 diabetes mellitus with ketoacidosis without coma; R65.21 Severe sepsis with septic shock; E43 Unspecified severe protein-calorie malnutrition; J96.01 Acute respiratory failure with hypoxia; G92.8 Other toxic encephalopathy; N39.0 Urinary tract infection, site not specified; E87.1 Hypo-osmolality and hyponatremia; N17.9 Acute kidney failure, unspecified; Z68.42 Body mass index [BMI] 45.0-49.9, adult; L89.152 Pressure ulcer of sacral region, stage 2; E88.09 Other disorders of plasma-protein metabolism, not elsewhere classified; K64.4 Residual hemorrhoidal skin tags; B96.20 Unspecified Escherichia coli [E. coli] as the cause of diseases classified elsewhere; R19.7 Diarrhea, unspecified; E87.6 Hypokalemia; E83.42 Hypomagnesemia; E83.39 Other disorders of phosphorus metabolism; R16.1 Splenomegaly, not elsewhere classified; E66.01 Morbid (severe) obesity due to excess calories; D69.6 Thrombocytopenia, unspecified; Z88.1 Allergy status to other antibiotic agents; N76.82 Fournier disease of vagina and vulva
CPT/HCPCS: 36415; 36430; 71045; 71260; 74176; 74177; 76705; 76857; 80048; 80053; 80061; 81001; 82010; 82247; 82248; 82533; 82607; 82728; 82746; 82803; 82947; 83036; 83540; 83550; 83605; 83615; 83690; 83735; 83880; 83930; 83935; 84100; 84134; 84145; 84300; 84439; 84443; 84481; 84482; 84484; 84550; 85014; 85018; 85025; 85045; 85060; 85379; 85384; 85610; 86850; 86900; 86901; 86923; 87040; 87077; 87086; 87186; 87426-QW; 87507; 87529; 92526; 92610; 93005; 93010; 93306; 94760; 94762; 96374-59; 97110; 97112; 97161; 97166; 97530; 99285-25; A9270; C1894; J0295; J0456; J0692; J0696; J1171; J1650; J1815; J1885; J1940; J2185; J2371; J2405; J2470; J2704; J3010; J3370; J3411; J3475; J3480; J7030; J7040; J7042; J7050; J7060; J7120; P9016; P9047; Q0167; Q9967

== ENCOUNTER → 2024-03-20 | Outpatient (CLI) | payer OTHER ==
[~2024-03-20] MED LIST: Acetaminophen650 M1 PO; B-1100 M2 PO; BANATROL PLUS1 EAC1 PO; DRON2.5 PO; FOLI1 PO; FURO40 PO; HUMALOG KW100 UNIT/1 SC; INSULIN LI100 UNIT/6 SC; JUVEN PACKET1 EAC3 PO; LANTUS SOL100 UNIT/1 SC; LIQUICAL PLUS480 ML PO; MICONAZOLE 2% TOP; MULTIVITAM12 MG/15 M PO; OXAYDO5 M2 PO
== END | disposition home or self-care (01) ==
LOC: LAB 13:07 → LAB SHORT 13:07
DX: L02.91 Cutaneous abscess, unspecified (principal)
CPT/HCPCS: 87070; 87075; 87077; 87186; 87205

== ENCOUNTER 2024-04-24 07:07 | Inpatient (IN) | payer OTHER ==
[~2024-04-24] VITALS: Ht 162.6 cm; Wt 96.8 kg
[2024-04-24] MEDS ORDERED: Ondansetron HCl 2 MG / ML 2ML Vial IV ONE ×2 (08:50→11:10)
[2024-04-24] MEDS ORDERED: IBUP200 PO (08:53)
[2024-04-24 09:11] LABS: BASOPHILS ABSOLUTE AUTO 0.04 K/mm3 (0.00-0.23); BASOPHILS PERCENT AUTO 0 % (0-2); EOSINOPHILS ABSOLUTE AUTO 0.08 K/mm3 (0.00-0.68); EOSINOPHILS PERCENT AUTO 1 % (0-6); Hematocrit 36.2 % (33.0-51.0); Hemoglobin 11.9 g/dL (11.5-16.0); IMMATURE GRAN ABSOLUTE AUTO 0.04 K/mm3 (0.00-0.10); IMMATURE GRAN PERCENT AUTO 0 % (0-1); LYMPHOCYTES ABSOLUTE AUTO 1.13 K/mm3 (0.84-5.20); LYMPHOCYTES PERCENT AUTO 13 % (21-46); MONOCYTES ABSOLUTE AUTO 0.29 K/mm3 (0.16-1.47); MONOCYTES PERCENT AUTO 3 % (4-13); Mean Corpuscular HGB 27.6 pg (26.0-34.0); Mean Corpuscular HGB Conc 32.9 g/dL (31.5-36.5); Mean Corpuscular Volume 84 fL (80-100); Mean Platelet Volume 8.6 fL (9.1-12.4); NEUTROPHILS ABSOLUTE AUTO 7.33 K/mm3 (1.96-9.15); NEUTROPHILS PERCENT AUTO 82 % (41-73); Platelet Count 310 K/mm3 (150-400); RDW Coefficient Variation 15.8 % (11.7-14.2); RDW Standard Deviation 48.2 fL (35.1-46.3); Red Blood Cell Count 4.31 M/mm3 (3.80-5.20); White Blood Cell Count 8.91 K/mm3 (4.00-11.30)
[2024-04-24 09:35] LABS: Albumin, Blood 3.6 g/dL (3.4-5.0); Albumin/Globulin Ratio 0.7 (0.8-1.8); Bilirubin, Total 0.4 mg/dL (0.1-1.0); Bun/Creatinine Ratio 16.9 (12.0-20.0); Calcium, Blood 10.1 mg/dL (8.5-10.1); Creatinine, Blood 0.47 mg/dL (0.40-1.00); Globulin, Blood 4.9 g/dL (2.2-4.0); Potassium, Blood 3.5 mmol/L (3.5-5.5); Total Protein, Blood 8.5 g/dL (6.4-8.2)
[2024-04-24] MEDS ORDERED: Labetalol HCL 5 MG/ML 4ML Injection (Single Dose) IV ONE ×2 (09:35→10:40)
[2024-04-24] MEDS ORDERED: FentaNYL Citrate 50 MCG/ML 2 ML Injection IV ONE (10:00)
[2024-04-24 10:19] LABS: Source, Urine Clean Catch
[2024-04-24] MEDS ORDERED: Clindamycin 900mg in D5W 50ML 50 ML IV ONE (11:20)
[2024-04-24] MEDS ORDERED: Piperacillin/Tazobactam Sod 3.375 GM in NS 100 ML IV ONE (11:20)
[2024-04-24] MEDS ORDERED: Vancomycin HCL 2,000 MG in NS 520 ML IV ONE (11:20)
[2024-04-24 11:33] LABS: Appearance, Urine Clear (Clear); Bilirubin, Urine Neg (Neg); Blood, Urine 1+ (Neg); Color, Urine Yellow (P-Yellow); Glucose Qualitative, Urine 3+ (Neg); Ketones, Urine 2+ (Neg); Leukocyte Esterase, Urine Neg (Neg); Nitrite, Urine Neg (Neg); Protein, Urine 3+ (Neg); Specific Gravity, Urine 1.015 (1.003-1.022); Urobilinogen, Urine NORM (Normal)
[2024-04-24] MEDS ORDERED: NS 1,000 ML IV SCH (11:50)
[2024-04-24] MEDS ORDERED: HydrALAZINE HCl 20 MG / ML 1ML Vial IV ONE (11:50)
[2024-04-24] MEDS ORDERED: HydrALAZINE HCl 20 MG / ML 1ML Vial IV PRN (12:20)
[2024-04-24 12:26] LABS: Hyaline Casts 0-2 /lpf (0-2)
[2024-04-24 12:27] LABS: Squamous Epithelial Cells Many /hpf (Few)
[2024-04-24 12:29] LABS: Amorphous Light (0-Heavy); Bacteria Mod /hpf
[2024-04-24 12:30] LABS: Transitional Epithelial Cells Rare /hpf (0-Rare); White Blood Cells, Urine 0-2 /hpf (0-5)
[2024-04-24] MEDS ORDERED: Cefepime HCl 1,000 MG in NS 100 ML IV SCH (12:30)
[2024-04-24] MEDS ORDERED: Metoclopramide HCl 5MG / ML 2ML Vial IV PRN (12:50)
[2024-04-24] MEDS ORDERED: Ondansetron HCl 2 MG / ML 2ML Vial IV PRN (13:15)
[2024-04-24] MEDS ORDERED: OxyCODONE HCL 5 MG TAB PO PRN (14:15)
[2024-04-24] MEDS ORDERED: Insulin Human Lispro 100 Units/ML 3ML Syringe SC SCH (16:30)
[2024-04-24 17:12] VITALS: BP 151/85
--- NOTE | 2024-04-24 17:59 | NUR ---
arrival to pcu/shift summary patient arrived to pcu from [facility] via [facility] and transfered to pcu bed with one person standby and used cane. patient vital signs stable. tele sinus tach 103. spo2 >95% on room air. patient is alert and oriented x4. neuro is intact. perrla. patient is able to make needs known and uses call light appropriately. patient denies pain, chest pain/pressure or shortness of breath. patient has a right wound on groin that has raised pink flush skin and has a pad in place and wound care done on arrival. there are photos in the chart of the wound. admit assessment complete, home meds complete and history complete. this rn spoke with md garcia and the patient needs to be cobra transfered out for a procedure on that right groin area. patient has been updated on this, and at bedside updated as well. charge weigher is making phone calls to find an accepting facility.
[2024-04-24] MEDS ORDERED: NS 250 ML IV PRN (19:45)
[2024-04-24] MEDS ORDERED: Clindamycin 900mg in D5W 50ML 50 ML IV SCH (20:00)
[2024-04-24 20:05] VITALS: BP 129/70
[2024-04-24] MEDS ORDERED: Lactobacil 2-S.Thermo-Bifido 1 1 Cap PO SCH (21:00)
[2024-04-24] MEDS ORDERED: Insulin Glargine-Yfgn 100 Unit/mL 3 ML SYR SC SCH (21:00)
[2024-04-24] MEDS ORDERED: Vancomycin HCL 1,000 MG in NS 250 ML IV SCH (22:00)
--- NOTE | 2024-04-24 22:28 | NUR ---
SHIFT SUMMARY PT HAS BEEN SLEEPING PEACEFULLY. WAKES EASILY FOR MEDICATION ADMINISTRATION AND INTERVENTIONS. PT HAS BEEN PLEASANT AND COOPERATIVE WITH CARE. PT LYING IN BED COMFORTABLY.
[2024-04-24 23:48] VITALS: BP 120/58
--- NOTE | 2024-04-25 00:02 | NUR ---
ASSUMPTION OF CARE NOTE. THIS RN TOOK OVER CARE FROM PREVIOUS RN @ APPROXIMATELY [id number]. PT RESTING COMFORTABLY AT TIME OF ASSESSMENT. VITALS STABLE. DENIES PAIN OR NEEDS OF ANY KIND. CEFEPIME HUNG. BED LOCKED IN LOWEST POSITION. CALL LIGHT LEFT WITHIN REACH. CONTINUING TO MONITOR.
--- NOTE | 2024-04-25 03:11 | NUR ---
TRANSFERRING CARE TO [employer]. PT HAS BEEN ABLE TO REST COMFORTABLY DURING TIME IN CARE OF THIS RN. DENIED PAIN. DENIED ANY ACUTE NEEDS. ABX ADMINISTERED ON TIME AND WITHOUT DIFFICULTY. CONTINUES TO RUN SINUS ON TELE. VITALS STABLE. CALLS APPROPRIATELY AND MAKES NEEDS KNOWN. BED LOCKED IN LOWEST POSITION. CALLLIGHT LEFT WITHIN REACH. CONTINUING TO MONITOR.
[2024-04-25 03:12] VITALS: BP 128/56
[2024-04-25 04:35] LABS: BASOPHILS ABSOLUTE AUTO 0.08 K/mm3 (0.00-0.23); BASOPHILS PERCENT AUTO 1 % (0-2); EOSINOPHILS ABSOLUTE AUTO 0.25 K/mm3 (0.00-0.68); EOSINOPHILS PERCENT AUTO 3 % (0-6); Hematocrit 30.3 % (33.0-51.0); Hemoglobin 9.8 g/dL (11.5-16.0); IMMATURE GRAN ABSOLUTE AUTO 0.03 K/mm3 (0.00-0.10); IMMATURE GRAN PERCENT AUTO 0 % (0-1); LYMPHOCYTES ABSOLUTE AUTO 1.49 K/mm3 (0.84-5.20); LYMPHOCYTES PERCENT AUTO 20 % (21-46); MONOCYTES ABSOLUTE AUTO 0.66 K/mm3 (0.16-1.47); MONOCYTES PERCENT AUTO 9 % (4-13); Mean Corpuscular HGB 27.9 pg (26.0-34.0); Mean Corpuscular HGB Conc 32.3 g/dL (31.5-36.5); Mean Corpuscular Volume 86 fL (80-100); Mean Platelet Volume 8.3 fL (9.1-12.4); NEUTROPHILS ABSOLUTE AUTO 4.89 K/mm3 (1.96-9.15); NEUTROPHILS PERCENT AUTO 66 % (41-73); Platelet Count 293 K/mm3 (150-400); RDW Coefficient Variation 16.6 % (11.7-14.2); RDW Standard Deviation 52.4 fL (35.1-46.3); Red Blood Cell Count 3.51 M/mm3 (3.80-5.20)
[2024-04-25 04:59] LABS: Albumin, Blood 2.9 g/dL (3.4-5.0); Albumin/Globulin Ratio 0.7 (0.8-1.8); Bilirubin, Total 0.3 mg/dL (0.1-1.0); Bun/Creatinine Ratio 16.5 (12.0-20.0); Calcium, Blood 9.1 mg/dL (8.5-10.1); Creatinine, Blood 0.85 mg/dL (0.40-1.00); Globulin, Blood 3.9 g/dL (2.2-4.0); Potassium, Blood 3.3 mmol/L (3.5-5.5); Total Protein, Blood 6.8 g/dL (6.4-8.2)
[2024-04-25] MEDS ORDERED: Potassium Chloride 20 MEQ TabCR PO ONE (09:40)
[2024-04-25 10:31] LABS: Bun/Creatinine Ratio 19.3 (12.0-20.0); Calcium, Blood 9.2 mg/dL (8.5-10.1); Creatinine, Blood 0.78 mg/dL (0.40-1.00); Potassium, Blood 3.4 mmol/L (3.5-5.5)
[2024-04-25 12:08] VITALS: BP 146/64
[2024-04-25 13:21] VITALS: BP 146/64
--- NOTE | 2024-04-25 14:16 | NUR ---
assumed care of pt a/o x4 ambulatory in pt calls appropriatly. ivs to left arm are both patent, pt has no c/o pain to right inguinal area no drainage noted, covered with mepilex. Dr Leija was consulted but confirmed higher level of care was needed. awaiting transfer to hospital with higher level of care. report called into [facility] in [place]. pt transferred via ambulance @[id number]
[2024-04-25 14:31] LABS: Vancomycin, Trough 30.5 ug/mL (5.0-10.0)
== END 2024-04-25 13:50 | disposition short-term general hospital (02) | DRG 872 ==
LOC: ER 07:07 → ERHOLD 11:54 → PCU 11:54 → ER 11:59 → PCU 17:05
PROVIDERS: Emergency Medicine; Student in an Organized Health Care Education/Training Program; ADMIT Family Medicine
DX: A41.9 Sepsis, unspecified organism (principal); E87.1 Hypo-osmolality and hyponatremia; M86.9 Osteomyelitis, unspecified; L02.214 Cutaneous abscess of groin; E11.69 Type 2 diabetes mellitus with other specified complication; I16.0 Hypertensive urgency; N76.82 Fournier disease of vagina and vulva; Z91.018 Allergy to other foods; Z88.5 Allergy status to narcotic agent; Z88.1 Allergy status to other antibiotic agents; Z91.030 Bee allergy status; Z79.4 Long term (current) use of insulin; Z79.1 Long term (current) use of non-steroidal anti-inflammatories (NSAID); Z79.85 Long-term (current) use of injectable non-insulin antidiabetic drugs; Z79.891 Long term (current) use of opiate analgesic; Z98.890 Other specified postprocedural states; S31.103D Unspecified open wound of abdominal wall, right lower quadrant without penetration into peritoneal cavity, subsequent encounter
CPT/HCPCS: 36415; 74177; 80048; 80053; 80202; 81001; 82947; 83036; 83605; 83690; 84484; 85025; 85651; 86140; 93005; 93010; A9270; J0360; J0692; J1815; J2405; J2543; J2765; J3010; J3370; J7030; J7040; J7050; Q9967

== ENCOUNTER → 2024-05-05 | Outpatient (CLI) | payer OTHER ==
[~2024-05-05] MED LIST changes: +IBUP200 PO
[2024-05-05 18:54] LABS: BASOPHILS ABSOLUTE AUTO 0.06 K/mm3 (0.00-0.23); BASOPHILS PERCENT AUTO 1 % (0-2); EOSINOPHILS ABSOLUTE AUTO 0.51 K/mm3 (0.00-0.68); EOSINOPHILS PERCENT AUTO 7 % (0-6); Hematocrit 26.9 % (33.0-51.0); Hemoglobin 8.8 g/dL (11.5-16.0); IMMATURE GRAN ABSOLUTE AUTO 0.04 K/mm3 (0.00-0.10); IMMATURE GRAN PERCENT AUTO 1 % (0-1); LYMPHOCYTES ABSOLUTE AUTO 1.57 K/mm3 (0.84-5.20); LYMPHOCYTES PERCENT AUTO 21 % (21-46); MONOCYTES ABSOLUTE AUTO 0.52 K/mm3 (0.16-1.47); MONOCYTES PERCENT AUTO 7 % (4-13); Mean Corpuscular HGB 27.8 pg (26.0-34.0); Mean Corpuscular HGB Conc 32.7 g/dL (31.5-36.5); Mean Corpuscular Volume 85 fL (80-100); Mean Platelet Volume 9.2 fL (9.1-12.4); NEUTROPHILS ABSOLUTE AUTO 4.73 K/mm3 (1.96-9.15); NEUTROPHILS PERCENT AUTO 64 % (41-73); Platelet Count 282 K/mm3 (150-400); RDW Standard Deviation 46.5 fL (35.1-46.3); Red Blood Cell Count 3.16 M/mm3 (3.80-5.20); White Blood Cell Count 7.43 K/mm3 (4.00-11.30)
[2024-05-05 20:11] LABS: Albumin, Blood 2.7 g/dL (3.4-5.0); Albumin/Globulin Ratio 0.8 (0.8-1.8); Bilirubin, Total 0.2 mg/dL (0.1-1.0); Bun/Creatinine Ratio 22.6 (12.0-20.0); Calcium, Blood 9.7 mg/dL (8.5-10.1); Creatinine, Blood 1.46 mg/dL (0.40-1.00); Globulin, Blood 3.6 g/dL (2.2-4.0); Potassium, Blood 3.7 mmol/L (3.5-5.5); Total Protein, Blood 6.3 g/dL (6.4-8.2)
== END ==
LOC: LAB 16:47 → LAB SHORT 16:47
PROVIDERS: Nurse Practitioner Family
DX: E11.69 Type 2 diabetes mellitus with other specified complication (principal); R53.1 Weakness; Z79.4 Long term (current) use of insulin; M86.9 Osteomyelitis, unspecified; L02.219 Cutaneous abscess of trunk, unspecified
CPT/HCPCS: 80053; 85025

== ENCOUNTER → 2024-05-12 | Outpatient (CLI) | payer OTHER ==
[2024-05-12 16:20] LABS: BASOPHILS ABSOLUTE AUTO 0.07 K/mm3 (0.00-0.23); BASOPHILS PERCENT AUTO 1 % (0-2); EOSINOPHILS ABSOLUTE AUTO 0.61 K/mm3 (0.00-0.68); EOSINOPHILS PERCENT AUTO 9 % (0-6); Hematocrit 26.8 % (33.0-51.0); Hemoglobin 8.7 g/dL (11.5-16.0); IMMATURE GRAN ABSOLUTE AUTO 0.02 K/mm3 (0.00-0.10); IMMATURE GRAN PERCENT AUTO 0 % (0-1); LYMPHOCYTES PERCENT AUTO 18 % (21-46); MONOCYTES ABSOLUTE AUTO 0.47 K/mm3 (0.16-1.47); MONOCYTES PERCENT AUTO 7 % (4-13); Mean Corpuscular HGB 27.4 pg (26.0-34.0); Mean Corpuscular HGB Conc 32.5 g/dL (31.5-36.5); Mean Corpuscular Volume 85 fL (80-100); Mean Platelet Volume 9.3 fL (9.1-12.4); NEUTROPHILS ABSOLUTE AUTO 4.61 K/mm3 (1.96-9.15); NEUTROPHILS PERCENT AUTO 65 % (41-73); Platelet Count 306 K/mm3 (150-400); RDW Coefficient Variation 14.3 % (11.7-14.2); RDW Standard Deviation 44.4 fL (35.1-46.3); Red Blood Cell Count 3.17 M/mm3 (3.80-5.20); White Blood Cell Count 7.08 K/mm3 (4.00-11.30)
[2024-05-12 16:43] LABS: Albumin, Blood 2.8 g/dL (3.4-5.0); Albumin/Globulin Ratio 0.8 (0.8-1.8); Bilirubin, Total 0.6 mg/dL (0.1-1.0); Bun/Creatinine Ratio 19.4 (12.0-20.0); Calcium, Blood 9.1 mg/dL (8.5-10.1); Creatinine, Blood 1.08 mg/dL (0.40-1.00); Globulin, Blood 3.6 g/dL (2.2-4.0); Percent Saturation 9.5 % (15.0-50.0); Potassium, Blood 4.6 mmol/L (3.5-5.5); Total Protein, Blood 6.4 g/dL (6.4-8.2)
== END ==
LOC: LAB 13:30 → LAB SHORT 13:30
PROVIDERS: Internal Medicine Infectious Disease
DX: M86.68 Other chronic osteomyelitis, other site (principal); Z48.817 Encounter for surgical aftercare following surgery on the skin and subcutaneous tissue; E11.65 Type 2 diabetes mellitus with hyperglycemia; E43 Unspecified severe protein-calorie malnutrition; M86.9 Osteomyelitis, unspecified; I10 Essential (primary) hypertension
CPT/HCPCS: 80053; 82728; 83540; 83550; 85025

== ENCOUNTER → 2024-05-19 | Outpatient (CLI) | payer OTHER ==
[2024-05-19 19:04] LABS: BASOPHILS ABSOLUTE AUTO 0.06 K/mm3 (0.00-0.23); BASOPHILS PERCENT AUTO 1 % (0-2); EOSINOPHILS ABSOLUTE AUTO 0.67 K/mm3 (0.00-0.68); EOSINOPHILS PERCENT AUTO 10 % (0-6); Hematocrit 26.8 % (33.0-51.0); Hemoglobin 8.7 g/dL (11.5-16.0); IMMATURE GRAN ABSOLUTE AUTO 0.02 K/mm3 (0.00-0.10); IMMATURE GRAN PERCENT AUTO 0 % (0-1); LYMPHOCYTES ABSOLUTE AUTO 1.36 K/mm3 (0.84-5.20); LYMPHOCYTES PERCENT AUTO 20 % (21-46); MONOCYTES ABSOLUTE AUTO 0.46 K/mm3 (0.16-1.47); MONOCYTES PERCENT AUTO 7 % (4-13); Mean Corpuscular HGB 27.6 pg (26.0-34.0); Mean Corpuscular HGB Conc 32.5 g/dL (31.5-36.5); Mean Corpuscular Volume 85 fL (80-100); Mean Platelet Volume 8.9 fL (9.1-12.4); NEUTROPHILS ABSOLUTE AUTO 4.33 K/mm3 (1.96-9.15); NEUTROPHILS PERCENT AUTO 63 % (41-73); Platelet Count 268 K/mm3 (150-400); RDW Coefficient Variation 13.9 % (11.7-14.2); RDW Standard Deviation 42.6 fL (35.1-46.3); Red Blood Cell Count 3.15 M/mm3 (3.80-5.20)
[2024-05-19 19:36] LABS: Albumin, Blood 2.9 g/dL (3.4-5.0); Albumin/Globulin Ratio 0.7 (0.8-1.8); Bilirubin, Total 0.3 mg/dL (0.1-1.0); Bun/Creatinine Ratio 23.2 (12.0-20.0); Creatinine, Blood 0.95 mg/dL (0.40-1.00); Globulin, Blood 3.9 g/dL (2.2-4.0); Potassium, Blood 4.4 mmol/L (3.5-5.5); Total Protein, Blood 6.8 g/dL (6.4-8.2)
== END ==
LOC: LAB 18:09 → LAB SHORT 18:09
PROVIDERS: Internal Medicine Infectious Disease
DX: M86.9 Osteomyelitis, unspecified (principal); L02.219 Cutaneous abscess of trunk, unspecified
CPT/HCPCS: 80053; 85025

== ENCOUNTER → 2024-05-26 | Outpatient (CLI) | payer OTHER ==
[2024-05-26 14:26] LABS: BASOPHILS ABSOLUTE AUTO 0.07 K/mm3 (0.00-0.23); BASOPHILS PERCENT AUTO 1 % (0-2); EOSINOPHILS ABSOLUTE AUTO 0.54 K/mm3 (0.00-0.68); EOSINOPHILS PERCENT AUTO 8 % (0-6); Hematocrit 29.1 % (33.0-51.0); Hemoglobin 9.4 g/dL (11.5-16.0); IMMATURE GRAN ABSOLUTE AUTO 0.02 K/mm3 (0.00-0.10); IMMATURE GRAN PERCENT AUTO 0 % (0-1); LYMPHOCYTES ABSOLUTE AUTO 1.37 K/mm3 (0.84-5.20); LYMPHOCYTES PERCENT AUTO 21 % (21-46); MONOCYTES ABSOLUTE AUTO 0.56 K/mm3 (0.16-1.47); MONOCYTES PERCENT AUTO 9 % (4-13); Mean Corpuscular HGB 27.6 pg (26.0-34.0); Mean Corpuscular HGB Conc 32.3 g/dL (31.5-36.5); Mean Corpuscular Volume 86 fL (80-100); Mean Platelet Volume 9.2 fL (9.1-12.4); NEUTROPHILS ABSOLUTE AUTO 3.87 K/mm3 (1.96-9.15); NEUTROPHILS PERCENT AUTO 60 % (41-73); Platelet Count 329 K/mm3 (150-400); White Blood Cell Count 6.43 K/mm3 (4.00-11.30)
[2024-05-26 14:44] LABS: Alanine Aminotransfer (ALT/SGP 15 U/L (12-78); Albumin/Globulin Ratio 0.8 (0.8-1.8); Alk Phos 74 U/L (50-136); Anion Gap 8 mmol/L (3-11); Aspartate Aminotrans (AST/SGOT 16 U/L (12-37); Bilirubin, Total 0.4 mg/dL (0.1-1.0); Blood Urea Nitrogen 22 mg/dL (8-24); Bun/Creatinine Ratio 24.6 (12.0-20.0); C-REACTIVE PROTEIN, EXT RANGE <0.290 mg/dL (0.000-0.300); CO2, Blood 24 mmol/L (21-32); Calcium, Blood 9.6 mg/dL (8.5-10.1); Chloride, Blood 107 mmol/L (98-108); Creatinine, Blood 0.89 mg/dL (0.40-1.00); Glomerular Filtration Rate 74 (60-); Glucose, Blood 158 mg/dL (70-99); Potassium, Blood 4.3 mmol/L (3.5-5.5); Sodium, Blood 135 mmol/L (136-145)
== END | disposition home or self-care (01) ==
LOC: LAB SHORT 12:36 → LAB 12:36
PROVIDERS: Internal Medicine Infectious Disease
DX: M86.9 Osteomyelitis, unspecified (principal); L02.219 Cutaneous abscess of trunk, unspecified
CPT/HCPCS: 80053; 85025; 85651; 86140

== ENCOUNTER 2024-05-27 09:03 | Day surgery (SDC) | payer OTHER ==
[2024-05-27] MEDS ORDERED: Alteplase Recombinant 2 MG / Vial IV PRN (09:50)
== END 2024-05-27 11:35 | disposition home or self-care (01) ==
LOC: ATC 09:03
DX: M86.18 Other acute osteomyelitis, other site (principal); E11.9 Type 2 diabetes mellitus without complications; Z79.899 Other long term (current) drug therapy
CPT/HCPCS: 36593; J2997

== ENCOUNTER → 2024-06-02 | Outpatient (CLI) | payer OTHER ==
[2024-06-02 13:02] LABS: BASOPHILS ABSOLUTE AUTO 0.08 K/mm3 (0.00-0.23); BASOPHILS PERCENT AUTO 1 % (0-2); EOSINOPHILS ABSOLUTE AUTO 0.59 K/mm3 (0.00-0.68); EOSINOPHILS PERCENT AUTO 10 % (0-6); Hematocrit 28.5 % (33.0-51.0); Hemoglobin 9.4 g/dL (11.5-16.0); IMMATURE GRAN ABSOLUTE AUTO 0.02 K/mm3 (0.00-0.10); IMMATURE GRAN PERCENT AUTO 0 % (0-1); LYMPHOCYTES ABSOLUTE AUTO 1.29 K/mm3 (0.84-5.20); LYMPHOCYTES PERCENT AUTO 22 % (21-46); MONOCYTES ABSOLUTE AUTO 0.52 K/mm3 (0.16-1.47); MONOCYTES PERCENT AUTO 9 % (4-13); Mean Corpuscular HGB 27.9 pg (26.0-34.0); Mean Corpuscular Volume 85 fL (80-100); NEUTROPHILS ABSOLUTE AUTO 3.43 K/mm3 (1.96-9.15); NEUTROPHILS PERCENT AUTO 58 % (41-73); Platelet Count 288 K/mm3 (150-400); RDW Coefficient Variation 13.5 % (11.7-14.2); RDW Standard Deviation 41.1 fL (35.1-46.3); Red Blood Cell Count 3.37 M/mm3 (3.80-5.20); White Blood Cell Count 5.93 K/mm3 (4.00-11.30)
[2024-06-02 14:33] LABS: C-REACTIVE PROTEIN, EXT RANGE <0.290 mg/dL (0.000-0.300)
[2024-06-02 14:37] LABS: Alanine Aminotransfer (ALT/SGP 24 U/L (12-78); Albumin, Blood 3.2 g/dL (3.4-5.0); Albumin/Globulin Ratio 0.8 (0.8-1.8); Alk Phos 81 U/L (50-136); Anion Gap 8 mmol/L (3-11); Aspartate Aminotrans (AST/SGOT 25 U/L (12-37); Bilirubin, Total 0.4 mg/dL (0.1-1.0); Blood Urea Nitrogen 19 mg/dL (8-24); Bun/Creatinine Ratio 22.5 (12.0-20.0); CO2, Blood 25 mmol/L (21-32); Calcium, Blood 9.6 mg/dL (8.5-10.1); Chloride, Blood 107 mmol/L (98-108); Creatinine, Blood 0.85 mg/dL (0.40-1.00); Globulin, Blood 3.8 g/dL (2.2-4.0); Glomerular Filtration Rate 78 (60-); Glucose, Blood 149 mg/dL (70-99); Potassium, Blood 4.4 mmol/L (3.5-5.5); Sodium, Blood 136 mmol/L (136-145)
== END | disposition home or self-care (01) ==
LOC: LAB 12:11 → LAB SHORT 12:11
PROVIDERS: Nurse Practitioner Family
DX: M86.9 Osteomyelitis, unspecified (principal); L02.219 Cutaneous abscess of trunk, unspecified
CPT/HCPCS: 80053; 85025; 85651; 86140

== ENCOUNTER → 2024-06-09 | Outpatient (CLI) | payer OTHER ==
[2024-06-09 13:35] LABS: BASOPHILS ABSOLUTE AUTO 0.05 K/mm3 (0.00-0.23); BASOPHILS PERCENT AUTO 1 % (0-2); EOSINOPHILS ABSOLUTE AUTO 0.43 K/mm3 (0.00-0.68); EOSINOPHILS PERCENT AUTO 9 % (0-6); Hematocrit 28.3 % (33.0-51.0); Hemoglobin 9.5 g/dL (11.5-16.0); IMMATURE GRAN ABSOLUTE AUTO 0.01 K/mm3 (0.00-0.10); IMMATURE GRAN PERCENT AUTO 0 % (0-1); LYMPHOCYTES ABSOLUTE AUTO 1.51 K/mm3 (0.84-5.20); LYMPHOCYTES PERCENT AUTO 31 % (21-46); MONOCYTES ABSOLUTE AUTO 0.57 K/mm3 (0.16-1.47); MONOCYTES PERCENT AUTO 12 % (4-13); Mean Corpuscular HGB 28.2 pg (26.0-34.0); Mean Corpuscular HGB Conc 33.6 g/dL (31.5-36.5); Mean Corpuscular Volume 84 fL (80-100); Mean Platelet Volume 9.2 fL (9.1-12.4); NEUTROPHILS ABSOLUTE AUTO 2.28 K/mm3 (1.96-9.15); NEUTROPHILS PERCENT AUTO 47 % (41-73); Platelet Count 273 K/mm3 (150-400); RDW Coefficient Variation 13.3 % (11.7-14.2); RDW Standard Deviation 40.2 fL (35.1-46.3); Red Blood Cell Count 3.37 M/mm3 (3.80-5.20); White Blood Cell Count 4.85 K/mm3 (4.00-11.30)
[2024-06-09 14:28] LABS: C-REACTIVE PROTEIN, EXT RANGE <0.290 mg/dL (0.000-0.300)
[2024-06-09 14:29] LABS: Alanine Aminotransfer (ALT/SGP 30 U/L (12-78); Albumin, Blood 3.2 g/dL (3.4-5.0); Albumin/Globulin Ratio 0.8 (0.8-1.8); Alk Phos 89 U/L (50-136); Anion Gap 8 mmol/L (3-11); Aspartate Aminotrans (AST/SGOT 36 U/L (12-37); Bilirubin, Total 0.3 mg/dL (0.1-1.0); Blood Urea Nitrogen 31 mg/dL (8-24); Bun/Creatinine Ratio 36.6 (12.0-20.0); CO2, Blood 23 mmol/L (21-32); Calcium, Blood 9.9 mg/dL (8.5-10.1); Chloride, Blood 108 mmol/L (98-108); Creatinine, Blood 0.85 mg/dL (0.40-1.00); Globulin, Blood 3.9 g/dL (2.2-4.0); Glomerular Filtration Rate 78 (60-); Glucose, Blood 163 mg/dL (70-99); Potassium, Blood 4.7 mmol/L (3.5-5.5); Sodium, Blood 134 mmol/L (136-145); Total Protein, Blood 7.1 g/dL (6.4-8.2)
== END | disposition home or self-care (01) ==
LOC: LAB SHORT 10:35 → LAB 10:35
PROVIDERS: Internal Medicine Infectious Disease
DX: L02.219 Cutaneous abscess of trunk, unspecified (principal); M86.9 Osteomyelitis, unspecified
CPT/HCPCS: 80053; 85025; 85651; 86140